=== PATIENT | female | born 1985 | race Caucasian/White ===

== ENCOUNTER 2024-10-06 14:03 | Inpatient (IN) | payer MEDICAID, SELFPAY ==
[2024-10-06] VITALS (35 sets, daily range): BP systolic 96–125; BP diastolic 39–85; PULSE 92–123; RESP 16–22; TEMP 37–39.3; O2SAT 95–100
[2024-10-06 14:35] LABS: Bilirubin Large (Negative); Blood Large (Negative); Clarity Sl Cloudy (Clear); Glucose Negative (Negative); Ketones >=160 mg/dL (Negative); Leukocyte Esterase Negative (Negative); Nitrite Positive (Negative); Specific Gravity >= 1.030 (1.005-1.025)
[2024-10-06 14:39] LABS: Lactate 1.8 mmol/L (<or=2.0)
[2024-10-06 14:42] LABS: Abs Immature Grans 0.08 10^3/uL (0.0-0.06); Absolute Basophil Count 0.03 10^3/uL (0.0-0.2); Absolute Lymphocyte Count 0.72 10^3/uL (1.2-3.4); Absolute Monocyte Count 0.95 10^3/uL (0.1-0.8); Absolute Neutrophil Count 13.25 10^3/uL (1.2-6.7); Basophils % 0.2 %; HGB 13.4 g/dL (11.2-15.7); Immature Grans % 0.5 %; Lymphocytes % 4.8 %; MCH 30.7 pg (27.0-33.0); MCHC 34.4 % (32.0-36.0); MCV 89 fL (80-95); MPV 9.1 fL (8.0-11.0); Monocytes % 6.3 %; Neutrophils % 88.2 %; Platelet Count 215 10^3/uL (130-400); RBC 4.37 10^6/uL (3.93-5.22); RDW 12.8 % (11.7-14.6); RDW-SD 42.1 fL; WBC 15.02 10^3/uL (4.4-10.8)
--- NOTE | 2024-10-06 14:45 | DI.CT_ITS ---
Exam(s) CT ABDOMEN PELVIS W EXAM: CT ABDOMEN PELVIS W CLINICAL HISTORY: RLQ pain with N/V/D. TECHNIQUE: Imaging Protocol: Axial computed tomography images with coronal and sagittal reformatted images were created and reviewed CONTRAST MATERIAL: Intravenous: Omnipaque-350 100cc Oral: None COMPARISON: No exams were available for comparison FINDINGS: VISUALIZED LUNG BASES: No nodules nor pleural effusions evident. ABDOMEN: LIVER: There are no focal hepatic lesions evident. No dilated intrahepatic ducts. GALLBLADDER/BILIARY: No obvious gallbladder pathology. CBD is not dilated. PANCREAS: No evidence of pancreatic mass nor dilatation of the pancreatic duct. SPLEEN: Spleen is not enlarged. No obvious intrasplenic lesions. Splenic and portal veins are patent. ADRENALS: There are no significant adrenal masses. KIDNEYS:Parapelvic cysts noted in left kidney. No solid renal masses. No calculi nor hydronephrosis.. ABDOMINAL AORTA: Abdominal aorta is not enlarged. LYMPH NODES:There is no retroperitoneal nor paraaortic adenopathy. ABDOMINAL WALL: No evidence of significant anterior abdominal wall nor inguinal hernia. GI: The cecum is located above the iliac crest. The appendix is significantly abnormal with thickening to 1 cm diameter and Diana pending seal streaking and there is also some adjacent free air consistent with perforation. There is also small-moderate amount of fluid in the cul-de-sac of the pelvis. Findings are consistent with acute perforated appendicitis. There is sigmoid diverticuli without evidence of obvious acute diverticulitis. PELVIS: LYMPH NODES: No intrapelvic nor inguinal adenopathy. REPRODUCTIVE: Uterus and ovaries appear unremarkable. URINARY BLADDER: No calculi nor obvious masses evident OSSEOUS: No fractures and no significant osseous lesions. IMPRESSION: 1. Findings consistent with acute appendicitis with perforation. Although there is abundant streaking in the mesoappendix, there is also some free fluid in the dependent aspect of the [id number]-[id number]-sac. This may be purulent fluid from the perforated appendicitis. This patient is at significant risk for developing an abscess. 2. Sigmoid diverticulosis without evidence of acute diverticulitis. Report called by myself to ER physician 10/06/2024 at 3:40 p.m. RADIATION DOSE DELIVERED: 688.86mGy.cm Total DLP DATA REPOSITORY: All CT scans at this facility are submitted to the National Radiology Data Registry (NRDR) Dose Index Registry (DIR) with the [employer] (A[employer]). RADIATION OPTIMIZATION: All CT scans at this facility use at least one of these dose optimization techniques: automated exposure control; mA and/or kV adjustment per patient size (includes targeted exams where dose is matched to clinical indication); or iterative reconstruction.
[2024-10-06] MEDS: Ondansetron 4 MG/2 ML VIAL IVP (14:46)
[2024-10-06] MEDS: ACETAMINOPHEN 1,000 MG/100 ML BAG 400 MG IVPB (14:46)
[2024-10-06 14:47] LABS: Bacteria Moderate HPF (Negative); C & S Indicated? No; Casts 0-2 Hyaline LPF (Negative); Crystals Moderate Amorphous HPF (Negative); Epithelial Cells Moderate HPF (Negative); Mucus Moderate (Negative); WBC 0-2 HPF (0-5)
--- NOTE | 2024-10-06 14:54 | W.ED.GENAD ---
Discharge Plan Disposition Patient Disposition: Admit to [facility] Condition: Stable Discharge Details Clinical Impression: Acute perforated appendicitis, Hypokalemia, Hypomagnesemia Primary Care Provider: None,None ED Provider: Alice White Home Meds and New Rx's Prescriptions: No Action norgestimate-ethinyl estradiol 0.25-0.035 mg tablet 1 tab PO DAILY Patient Comments: TAKE 1 TABLET BY MOUTH ONCE A DAY FOR CONTRACEPTION AND START THE... (REFER TO PRESCRIPTION NOTES). escitalopram oxalate 10 mg tablet 10 mg PO DAILY Patient Comments: take 1 tablet by mouth once daily for MOOD HPI General Mode of arrival: ambulatory. Date/Time Provider Initiated Documentation: 10/06/24 14:06. Limitations to Documentation: no limitations. Information obtained by: patient and old records reviewed. HPI Narrative: This is a 38-year-old female patient with a history of depression, no prior abdominal surgeries, presenting for evaluation of right lower quadrant abdominal pain. The pain started last night and has been fairly constant, is associated with nausea, vomiting, and diarrhea. Denies recent antibiotic use, hospitalizations, or exposure to unclean water sources. She has not tried any medications at home for management of these symptoms. She presented today with a fever, states that nobody else in her home is sick with similar symptoms. Her pain radiates into her back, is not associated with any dysuria or hematuria. She reports that she feels hungry, but when she eats her pain gets worse and she vomits. Related Data Home Medications ?Medication ?Instructions ?Recorded ?Confirmed escitalopram oxalate 10 mg tablet 10 mg PO DAILY 10/06/24 10/06/24 norgestimate 0.25 mg-ethinyl 1 tab PO DAILY 10/06/24 10/06/24 estradiol 0.035 mg tablet Allergies Allergy/AdvReac Type Severity Reaction Status Date / Time sertraline (From Zoloft) Allergy Mild Agitation Verified 10/06/24 14:08 General Stated Complaint: Abd Prob DAVINA: 3 Exam Narrative Exam Narrative: Gen: Awake and alert, appears uncomfortable HEENT: Non-icteric sclera Neck: Supple Lungs: No apparent respiratory distress, normal respiratory effort. Lung sounds clear and equal bilaterally CV: Appears well perfused, heart with tachycardic rate but regular rhythm, no murmurs auscultated, strong distal pulses Abdomen: Non-distended, soft, tender to palpation in the right lower and right upper quadrants with anticipatory guarding, no rigidity or rebound. Rovsing sign positive MSK: Moves 4 extremities without apparent limitation in ROM Skin: Visualized skin without rashes, cyanosis. Neuro: Normal Gait, no obvious focal deficits or facial asymmetry. Speaks in full, clear sentences. Psych: Appropriate for situation. Course Vital Signs Vital signs: Vital Signs Temperature 39.3 C H 10/06/24 14:04 Pulse 123 H 10/06/24 14:04 Respiratory Rate 18 10/06/24 14:04 Blood Pressure 106/57 L 10/06/24 14:04 Pulse Oximetry 96 10/06/24 14:04 Temperature 39.3 C H 10/06/24 14:10 Temperature Source Oral 10/06/24 14:10 Pulse 123 H 10/06/24 14:10 Respiratory Rate 18 10/06/24 14:10 Blood Pressure 106/57 L 10/06/24 14:10 Pulse Oximetry 96 10/06/24 14:10 Oxygen Delivery Method Room Air 10/06/24 14:10 Oxygen Flow Rate 0 10/06/24 14:10 Pain Level 10 10/06/24 14:10 Lab/Test Results Lab/Test Results: Laboratory Tests Range/Units 10/06/24 10/06/24 14:16 14:30 WBC (4.4-10.8) 10^3/uL 15.02 H RBC (3.93-5.22) 10^6/uL 4.37 Hgb (11.2-15.7) g/dL 13.4 Hct (36.0-46.0) % 39.0 MCV (80-95) fL 89 MCH (27.0-33.0) pg 30.7 MCHC (32.0-36.0) % 34.4 RDW (11.7-14.6) % 12.8 Plt Count (130-400) 10^3/uL 215 MPV (8.0-11.0) fL 9.1 Immature Gran % % 0.5 Neutrophils % % 88.2 Lymphocytes % % 4.8 Monocytes % % 6.3 Eosinophils % % 0.0 Basophils % % 0.2 Nucleated RBC % (0.0-0.3) % 0.0 Absolute Neutrophils (1.2-6.7) 10^3/uL 13.25 H Absolute Lymphocytes (1.2-3.4) 10^3/uL 0.72 L Absolute Monocytes (0.1-0.8) 10^3/uL 0.95 H Absolute Eosinophils (0.0-0.7) 10^3/uL 0.00 Absolute Basophils (0.0-0.2) 10^3/uL 0.03 VBG Lactate (<or=2.0) mmol/L 1.8 Urine Color (Yellow) Suzanne Urine Clarity (Clear) Sl Cloudy Urine pH (5-8) 6.0 Ur Specific [place] (1.005-1.025) >= 1.030 H Urine Protein (Neg-Trace) mg/dL >=300 H Urine Ketones (Negative) mg/dL >=160 H Urine Blood (Negative) Large H Urine Nitrite (Negative) Positive H Urine Bilirubin (Negative) Large H Urine Urobilinogen (Up to 0.2) mg/dL 1.0 H Ur Leukocyte Esterase (Negative) Negative Urine RBC (0-2) HPF 10-20 H Urine WBC (0-5) HPF 0-2 Ur Epithelial Cells (Negative) HPF Moderate Urine Crystals (Negative) HPF Moderate Amorphous Urine Bacteria (Negative) HPF Moderate Urine Casts (Negative) LPF 0-2 Hyaline Urine Mucus (Negative) Moderate Ur Culture Indicated? No Urine Glucose (Negative) mg/dL Negative POC- Test(urine) Negative Medical Decision Making This is a 38-year-old female patient presenting for evaluation of abdominal pain. My differential includes but is not limited to gastritis, gastroenteritis, pancreatitis, cholecystitis, hepatitis, appendicitis, diverticulitis, bowel obstruction, metabolic electrolyte derangements including dehydration, kidney injury, anemia. Considered mesenteric ischemia and aortic pathology though the patient is young and without risk factors for these etiologies. Considered urinary tract infection, nephrolithiasis, and considered ectopic , ovarian cyst, PID/TOA. I will provide the patient with a dose of Tylenol for her fever, Zofran and Dilaudid for management of pain and nausea, and will obtain CBC, CMP, magnesium, lipase, and lactate. I will obtain a urinalysis and [id number] urine . We will obtain a CT abdomen pelvis. -I reviewed the patient's laboratory studies, which noted a leukocytosis to 15 but no anemia or thrombocytopenia. Chemistry panel is notable for a potassium of 3.3 and a magnesium of 1.5. I repleted the magnesium and potassium, no other significant electrolyte derangements, no evidence of kidney disease, bilirubin slightly elevated to 2.4 without associated transaminitis. Lipase is low, lactate 1.8, urinalysis grossly contaminated, and in the absence of symptoms I will hold on empiric treatment or culture. I reviewed the patient's CT scan and discussed the results with the radiologist. It is notable for a perforated appendicitis. I provided the patient with a dose of Zosyn, made her n.p.o., and reached out to the general surgery team. They reviewed the imaging and discussed the situation with the patient, and are electing for admission and medical management at this time. She was transferred to the general surgery team and remained hemodynamically improved while under my care, with a resolution of her tachycardia. Alice White MD Critical Care Time Critical Care Time Critical Care Time: Yes Total Critical Care Time: 35 Attestation: Upon my evaluation, this patient had a high probability of imminent or life-threatening deterioration due to perforated appendicitis, which required my direct attention, intervention, and personal management. I have personally provided 35 minutes of critical care time exclusive of time spent on separately billable procedures. Time includes review of laboratory data, radiology results, discussion with consultants, and monitoring for potential decompensation. Interventions were performed as documented above. Alice White MD [facility] All Active Problems (Updated 10/06/24 @ 17:44 by Alice White MD) Hypomagnesemia (Acute) Hypokalemia (Acute) Acute perforated appendicitis (Acute) Social History Smoking/Tobacco Use Status: Never Smoking risk assessment performed?: Yes Alcohol Intake: current Alcohol Intake frequency: holidays/special occasions only Drug use: Rarely Substance use type: marijuana
[2024-10-06] MEDS: Normal Saline 50 ML (15:01)
[2024-10-06] MEDS: HYDROmorphone 2 MG/ML SYR 0.5 MG IVP (15:01)
[2024-10-06 15:02] LABS: ALT 22 U/L (14-59); AST 16 U/L (15-37); Albumin 3.4 g/dL (3.4-5.0); Alkaline Phosphatase 90 U/L (46-116); Anion Gap 11.2 mmol/L (3-11); BUN 11 mg/dL (7-18); Bilirubin, Total 2.4 mg/dL (0.2-1.0); CO2 26.8 mmol/L (21.0-32.0); CREATININE 0.9 mg/dL (0.55-1.02); Chloride 97 mmol/L (98-107); Estimated GFR 84.97 (mL/min/1.73m2); Glucose 126 mg/dL (74-106); Lipase 18 U/L (<78); Magnesium 1.5 mg/dL (1.8-2.4); Potassium 3.3 mmol/L (3.5-5.1); Sodium 135 mmol/L (136-145); Total Protein 8.1 g/dL (6.4-8.2)
[2024-10-06] MEDS: Omnipaque 350 MG/ML 100 ML BTL 75 ML IJ (15:21)
[2024-10-06] MEDS: Normal Saline - Diluent 50 ML VIAL IJ (15:22)
[2024-10-06] MEDS: MAGNESIUM SULFATE 2 GM/50 ML BAG IV_INF (15:46)
[2024-10-06] MEDS: Potassium Chloride 20 MEQ TABCR 40 MEQ PO (15:46)
[2024-10-06] MEDS: PIPERACILLIN/TAZO 3.375 GM in Normal Saline 50 ML IVPB (15:59)
[2024-10-06] MEDS: Normal Saline 1,000 ML 1000 ML IV (16:52)
--- NOTE | 2024-10-06 18:07 | W.PC.ACHO ---
Registration Status: ADM IN Primary Language: Preferred Language: Unable to Obtain ED Information & Data Chief Complaint Abd Prob 10/06/24 14:56 Triage Note pt c/o rlq pain and vomiting 10/06/24 14:04 and diarrhea onset last night pt states painful to move Most Recent Vital Signs Temperature 37.2 C 10/06/24 16:18 Temperature Source Oral 10/06/24 16:18 Pulse 98 H 10/06/24 17:46 Respiratory Rate 18 10/06/24 14:10 Blood Pressure 118/51 L 10/06/24 17:46 Blood Pressure Mean 68 10/06/24 17:46 Pulse Oximetry 98 10/06/24 17:46 Oxygen Delivery Method Room Air 10/06/24 14:10 Oxygen Flow Rate 0 10/06/24 14:10 Pain Level 10 10/06/24 14:10 Allergies sertraline (From Zoloft) Allergy (Mild, Verified 10/06/24 14:08) Agitation Active Medications Generic Name Dose Route Start Last Admin Trade Name Freq PRN Reason Stop Dose Admin Iohexol 75 ml 10/06/24 15:30 10/06/24 15:21 Omnipaque 350 Mg/Ml 100 Ml Btl IJ 11/05/24 23:59 75 ml DIRECTED JENA Administration Sodium Chloride 50 ml 10/06/24 15:30 10/06/24 15:22 Normal Saline - Diluent 50 Ml Vial IJ 50 ml .FOR DI USE JENA Administration IV IV Catheter Type [Right Wrist] Saline Lock IV Catheter Gauge [Right Wrist 20 ] Diet Orders Category Date Time Status Nothing Per Oral [DIET] Nutrition 10/06/24 17:45 Active Diagnostics 10/06/24 10/06/24 Range/Units 14:30 14:16 WBC 15.02 H (4.4-10.8) 10^3/uL RBC 4.37 (3.93-5.22) 10^6/uL Hgb 13.4 (11.2-15.7) g/dL Hct 39.0 (36.0-46.0) % MCV 89 (80-95) fL MCH 30.7 (27.0-33.0) pg MCHC 34.4 (32.0-36.0) % RDW 12.8 (11.7-14.6) % Plt Count 215 (130-400) 10^3/uL MPV 9.1 (8.0-11.0) fL Immature Gran % 0.5 % Neutrophils % 88.2 % Lymphocytes % 4.8 % Monocytes % 6.3 % Eosinophils % 0.0 % Basophils % 0.2 % Nucleated RBC % 0.0 (0.0-0.3) % Absolute Neutrophils 13.25 H (1.2-6.7) 10^3/uL Absolute Lymphocytes 0.72 L (1.2-3.4) 10^3/uL Absolute Monocytes 0.95 H (0.1-0.8) 10^3/uL Absolute Eosinophils 0.00 (0.0-0.7) 10^3/uL Absolute Basophils 0.03 (0.0-0.2) 10^3/uL VBG Lactate 1.8 (<or=2.0) mmol/L Sodium 135 L (136-145) mmol/L Potassium 3.3 L (3.5-5.1) mmol/L Chloride 97 L (98-107) mmol/L Carbon Dioxide 26.8 (21.0-32.0) mmol/L Anion Gap 11.2 H (3-11) mmol/L BUN 11 (7-18) mg/dL Creatinine 0.9 (0.55-1.02) mg/dL Est GFR (CKD-EPI 2020) 84.97 (mL/min/1.73m2) Glucose 126 H (74-106) mg/dL Calcium 9.0 (8.5-10.1) mg/dL Magnesium 1.5 L (1.8-2.4) mg/dL Total Bilirubin 2.4 H (0.2-1.0) mg/dL AST 16 (15-37) U/L ALT 22 (14-59) U/L Alkaline Phosphatase 90 (46-116) U/L Total Protein 8.1 (6.4-8.2) g/dL Albumin 3.4 (3.4-5.0) g/dL Lipase 18 (<78) U/L Urine Color Suzanne (Yellow) Urine Clarity Sl Cloudy (Clear) Urine pH 6.0 (5-8) Ur Specific [place] >= 1.030 H (1.005-1.025) Urine Protein >=300 H (Neg-Trace) mg/dL Urine Ketones >=160 H (Negative) mg/dL Urine Blood Large H (Negative) Urine Nitrite Positive H (Negative) Urine Bilirubin Large H (Negative) Urine Urobilinogen 1.0 H (Up to 0.2) mg/dL Ur Leukocyte Esterase Negative (Negative) Urine RBC 10-20 H (0-2) HPF Urine WBC 0-2 (0-5) HPF Ur Epithelial Cells Moderate (Negative) HPF Urine Crystals Moderate Amorphous (Negative) HPF Urine Bacteria Moderate (Negative) HPF Urine Casts 0-2 Hyaline (Negative) LPF Urine Mucus Moderate (Negative) Ur Culture Indicated? No Urine Glucose Negative (Negative) mg/dL [id number] Documentation POC Urine Test Start: 10/06/24 14:09 Freq: .Urine Test Status: Active Protocol: Activity Type Activity Date Activity User E-sign Co-sign Detail Recorded Client Recorded Date Recorded By Document 10/06/24 14:21 N.MONICA [id number] 10/06/24 14:21 NISAAC Intake and Output - 24 Hour Total 10/06/24 14:03 thru 10/06/24 16:29 Intake Total 150 Balance 150 Weight 81.647 kg Intake: IV 150 Falls Risk Assessment History of Falls No History 10/06/24 14:11 Contributing Factors No Factors 10/06/24 14:11 Ambulatory Aids Independent 10/06/24 14:11 Tubes/Lines None 10/06/24 14:11 Gait Evaluation No gait disturbance 10/06/24 14:11 Cognition No cognitive impairment 10/06/24 14:11 Fall Total Score 0 10/06/24 14:11 Level of Risk Standard/Low Risk 10/06/24 14:11 v v v v v v v v v Sending and/or Receiving Nurses: Please use comment section below to note any information pertinent to the patient hand-off not included above. Information / Comments: Paged at [phone], called for report at [phone]. 20 G R wrist. Pt given dilauded, zosyn, NS bolus, IV mag, PO potassium, and zofran in the ED. Currently NPO. Report received from: Rhonda Rasheed ED RN
[2024-10-06] MEDS: Enoxaparin 40 MG/0.4 ML SYR SC (18:57)
[2024-10-06] MEDS: cefTRIAXone 2 GM/50 ML BAG IVPB (18:57)
[2024-10-06] MEDS: Lactated Ringers 1,000 ML 125 ML IV (18:57)
[2024-10-06] MEDS: Normal Saline Flush 10 ML SYR IVP ×2 (19:04→19:55)
[2024-10-06] MEDS: metroNIDAZOLE 500 MG/100 ML BAG 100 MG IVPB (19:46)
--- NOTE | 2024-10-06 20:22 | W.PM.HP.N ---
Date of service: 10/06/24 Time of Service: 17:30 Assessment and Plan Assessment and plan (1) Acute perforated appendicitis: Status: Acute Assessment and plan: Personally reviewed patient's CT scan, she has some significant inflammation in the right lower quadrant, and a generous amount of fat stranding in the right lower quadrant. The cecum and cecal base appear thickened. Recommended patient undergo medical management of her appendicitis with IV antibiotics. Will admit her to the hospital and start her on Rocephin and Flagyl. Did discuss with the patient today, as well as her stepmother by phone, who provides the patient support at home. (2) Hypokalemia: Status: Acute Assessment and plan: Repleted today on admission to the ER. (3) Hypomagnesemia: Status: Acute Assessment and plan: Repleted today on admission to the ER. History of Present Illness Narrative: Patient is a 38-year-old female, she has a history of depression, as well as some developmental delay, she is currently on Lexapro. She reports that over the past 24 hours she developed an acute onset of right lower quadrant abdominal pain associated with some nausea. She has not experienced pain like this in the past. She relates no history of melena nor hematochezia. She relates normal menstrual cycles. She denies any history of dysuria. She has had no prior surgical procedures. She lives with her stepmother, currently she is on disability secondary to her developmental delay. Review of Systems Narrative: General, negative. CV, negative. Respiratory, negative. GI, as per HPI, otherwise negative. negative. Musculoskeletal negative. Neuro, as per HPI above, patient with developmental delay. Endocrine, negative. Skin, negative. PFSH All Active Problems (Updated 10/06/24 @ 20:43 by Juancho Lozano MD) Sepsis (Acute) Hypomagnesemia (Acute) Hypokalemia (Acute) Acute perforated appendicitis (Acute) Social History Smoking/Tobacco Use Status: Never Smoking risk assessment performed?: Yes Alcohol Intake: current Alcohol Intake frequency: holidays/special occasions only Drug use: Rarely Substance use type: marijuana Housing: house Meds Allergies and Home Medications Allergies Allergy/AdvReac Type Severity Reaction Status Date / Time sertraline (From Zoloft) Allergy Mild Agitation Verified 10/06/24 14:08 Home Medications ?Medication ?Instructions ?Recorded ?Confirmed ?Type escitalopram oxalate 10 mg tablet 10 mg PO DAILY 10/06/24 10/06/24 History norgestimate 0.25 mg-ethinyl 1 tab PO DAILY 10/06/24 10/06/24 History estradiol 0.035 mg tablet Exam Narrative Exam Narrative: Patient is an adult female, 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 She does appear very anxious. Her cardiac exam elicits some mild tachycardia but without murmur. Her pulmonary exam is clear to auscultation bilaterally. Her abdomen has some mild abdominal obesity. There are no prior surgical scars, the abdomen is soft, tender in the right lower quadrant, with some subjective distention, but without tympany to percussion. Results Imaging Abdomen CT scan report/results: report reviewed and image reviewed Labs 10/06/24 14:30 10/06/24 14:30 Labs: Laboratory Results - last 24 hr 10/06/24 10/06/24 14:16 14:30 WBC 15.02 H RBC 4.37 Hgb 13.4 Hct 39.0 MCV 89 MCH 30.7 MCHC 34.4 RDW 12.8 Plt Count 215 MPV 9.1 Immature Gran % 0.5 Neutrophils % 88.2 Lymphocytes % 4.8 Monocytes % 6.3 Eosinophils % 0.0 Basophils % 0.2 Nucleated RBC % 0.0 Absolute Neutrophils 13.25 H Absolute Lymphocytes 0.72 L Absolute Monocytes 0.95 H Absolute Eosinophils 0.00 Absolute Basophils 0.03 VBG Lactate 1.8 Sodium 135 L Potassium 3.3 L Chloride 97 L Carbon Dioxide 26.8 Anion Gap 11.2 H BUN 11 Creatinine 0.9 Est GFR (CKD-EPI 2020) 84.97 Glucose 126 H Calcium 9.0 Magnesium 1.5 L Total Bilirubin 2.4 H AST 16 ALT 22 Alkaline Phosphatase 90 Total Protein 8.1 Albumin 3.4 Lipase 18 Urine Color Suzanne Urine Clarity Sl Cloudy Urine pH 6.0 Ur Specific [place] >= 1.030 H Urine Protein >=300 H Urine Ketones >=160 H Urine Blood Large H Urine Nitrite Positive H Urine Bilirubin Large H Urine Urobilinogen 1.0 H Ur Leukocyte Esterase Negative Urine RBC 10-20 H Urine WBC 0-2 Ur Epithelial Cells Moderate Urine Crystals Moderate Amorphous Urine Bacteria Moderate Urine Casts 0-2 Hyaline Urine Mucus Moderate Ur Culture Indicated? No Urine Glucose Negative Last Vital Signs Temp 38.5 C H 10/06/24 19:24 Pulse 106 H 10/06/24 19:24 Resp 20 10/06/24 19:24 BP 117/45 L 10/06/24 19:24 Pulse Ox 100 10/06/24 19:24 Time Spent Time spent with Patient: <40 minutes Time was spent: preparing to see the patient(eg.review tests), ordering medications,tests, procedures, referring, communicating with other health livestock caretaker, indepentently interpreting results and counseling the patient
[2024-10-07] MEDS: metroNIDAZOLE 500 MG/100 ML BAG 100 MG IVPB ×4 (01:37→20:08)
[2024-10-07 03:10] VITALS: BP 111/57; PULSE 90; RESP 20; TEMP 36.7; O2SAT 96
[2024-10-07] MEDS: Lactated Ringers 1,000 ML 125 ML IV ×2 (06:30→17:02)
[2024-10-07 06:36] LABS: Abs Immature Grans 0.09 10^3/uL (0.0-0.06); Absolute Basophil Count 0.02 10^3/uL (0.0-0.2); Absolute Eosinophil Count 0.01 10^3/uL (0.0-0.7); Absolute Lymphocyte Count 1.13 10^3/uL (1.2-3.4); Absolute Neutrophil Count 9.99 10^3/uL (1.2-6.7); Basophils % 0.2 %; Eosinophils % 0.1 %; HCT 32.3 % (36.0-46.0); HGB 10.8 g/dL (11.2-15.7); Immature Grans % 0.7 %; Lymphocytes % 9.2 %; MCH 30.5 pg (27.0-33.0); MCHC 33.4 % (32.0-36.0); MCV 91 fL (80-95); MPV 9.3 fL (8.0-11.0); Monocytes % 8.2 %; Neutrophils % 81.6 %; Platelet Count 165 10^3/uL (130-400); RBC 3.54 10^6/uL (3.93-5.22); RDW 13.1 % (11.7-14.6); RDW-SD 43.6 fL; WBC 12.24 10^3/uL (4.4-10.8)
[2024-10-07 06:40] LABS: Anion Gap 12.5 mmol/L (3-11); BUN 8 mg/dL (7-18); CO2 24.5 mmol/L (21.0-32.0); CREATININE 0.7 mg/dL (0.55-1.02); Calcium 8.4 mg/dL (8.5-10.1); Chloride 102 mmol/L (98-107); Estimated GFR 114.88 (mL/min/1.73m2); Glucose 111 mg/dL (74-106); Potassium 3.4 mmol/L (3.5-5.1); Sodium 139 mmol/L (136-145)
[2024-10-07 08:00] VITALS: BP 113/53; PULSE 94; TEMP 36.1; O2SAT 98
--- NOTE | 2024-10-07 09:21 | INITIAL_ITS ---
Date of service: 10/07/24 Time of Service: 09:22 Care Management Initial Assmt Initial Assessment Reason for Hospitalization: acute perforated appendicitis Functional Status/Living Situation Patient Presentation: Jocelyne presented to the ED yesterday afternoon with c/o right lower quadrant abdominal pain. The pain was reported as constant and associated with nausea, vomiting and diarrhea. She was also noted to have a fever upon presentation to the ED. After consultation with the surgeon, it was decided that she would be treated with IV antibiotics as opposed to surgery. Jocelyne was lying in bed when CM met with her today. She was very pleasant and easily engaged. Jocelyne stated that she is feeling a little bit better, but not a lot. She stated that she was told by surgery that she would be admitted for several days due to the severity of her infection. Surgery note does indicate that Jocelyne will be kept NPO through the weekend. Jocelyne does not have a PCP in the community, and will be referred to the T-Doc for follow up. T-doc was Jesi Jon at [facility]. SADA did attempt to reach out to Armond, but no answer. CM left a generic message as no name was stated. Town of Residence: [place] Resides with: Other (Jocelyne lives with her sister, Suzanne, Suzanne's 2 children who are 10y and 2y, and also Suzanne's mom, Armond. They live in Suzanne's mom's house.) Significant Other/Family: Local (Suzanne and Armond) Natural Supports: Armond and Suzanne Employment Status: Disabled (due to developmental delay) Instrumental Activities of Daily Living (ADLs): Independent Activities/Hobbies/SocialSupport: Jocelyne stated that she likes to watch TV and play with her sister's kids. Medications Medication Management: No Issues/Barriers identified Advance Directives Advance Directives: Do you have an Advance Directive: N , 14:[address] [facility]: N 10/06/24, 14:07 Date Asked 10/06/24 10/06/24, 14:07 AD Date Reviewed COLST On File at [facility] COLST Date Scanned Code Status Resuscitation Status Full Code Insurance Coverage/Financial Issues Insurance: [facility] plan Medicaid of [place] Care Team Visit Care Team Role Provider Type None None Primary Care Provider NON-[facility] STAFF PHYSICIAN Alice White MD Emergency Provider [facility] STAFF PHYSICIAN Juancho Lozano MD Admit Provider [facility] STAFF PHYSICIAN Attending Provider Discharge Potential Discharge Needs: PCP F/U Appt Anticipated Barriers to Discharge: None Identified Patient/Family Education Needs: Review discharge instructions, discuss Ask Me Three Transportation: Private vehicle Plan: Anticipate that Jocelyne will discharge home with now new services. She will f/u with the T-doc and continue per her plan of care. She will transport in a private vehicle. CM will continue to follow. Social Determinants of Health Screening Social Determinants of health last assessed in clinic: 10/07/24 Will the Patient Participate in the Screening?: Yes Do you worry about having a steady place to live?: no Problems where you live: no known problems In the past 12 months, have you had to go without electric, gas, oil or water in your home?: no 1. Within the past 12 months, we worried whether our food would run out before we got money to buy more.: Never true 2. Within the past 12 months, the food we bought just didn't last and we didn't have money to get more.: Never true Has lack of transportation kept you from medical appointments or from doing things needed for daily living?: no Has anyone in your life made you feel unsafe or unsupported?: no How hard is it for you to pay for the very basics like food, housing, medical care, and heating? Would you say it is:: Not hard at all Do you want help finding or keeping work or a job?: I do not need or want help If for any reason you need help with day-to-day activities such as bathing, preparing meals, shopping, managing finances, etc., do you get the help you need?: I don?t need any help How often do you feel lonely or isolated from those around you?: Never Do you speak a language other than Bhutanese at home?: No Does the patient want assistance with any of the above?: No PFSH All Active Problems (Updated 10/07/24 @ 10:29 by Juancho Lozano MD) Depression (Chronic) Sepsis (Acute) Hypomagnesemia (Acute) Hypokalemia (Acute) Acute perforated appendicitis (Acute) Social History Smoking/Tobacco Use Status: Never Smoking risk assessment performed?: Yes Alcohol Intake: current Alcohol Intake frequency: holidays/special occasions only Drug use: Rarely Substance use type: marijuana Housing: house
--- NOTE | 2024-10-07 10:24 | W.PM.PROGNOT ---
Date of Service Date of service: 10/07/24 Time of Service: 10:25 Assessment and Plan Assessment and plan (1) Acute perforated appendicitis: Status: Acute Assessment and plan: Doing acceptably today. Does not appear to be worsening. Only on Rocephin and Flagyl, she is n.p.o., plan to keep her n.p.o. over the weekend. (2) Hypokalemia: Status: Acute Assessment and plan: Mild hypokalemia today, this was replaced with 40 mill equivalents today. (3) Hypomagnesemia: Status: Acute Assessment and plan: Mildly hypomagnesemic today, replaced with 2 g of magnesium sulfate. (4) Depression: Status: Chronic Assessment and plan: She has a history of depression, she is on Lexapro, this is being held, as she is NPO. I recommended to her that she keep the windows open during the day, so that she is able to see some sunlight, and does not begin to confuse day and night cycles. (5) Sepsis: Status: Acute Assessment and plan: Sepsis, from abdominal source, perforated appendicitis, this is being treated medically. Subjective Subjective Interval history since last seen: Patient feels a little better today. She is less anxious than yesterday as well. Exam Narrative Exam Narrative: Her vitals today show some improvement of the tachycardia. Since midnight she has been afebrile. Ms. Ackerman was examined today with her nurse present as a recreation technician. Her abdomen is soft, still with tenderness in the right lower quadrant near McBurney's point. Her abdomen does not appear distended, this is limited however by her body habitus, and some subcutaneous abdominal fat deposition. Objective Last Vital Signs Temp 36.1 C L 10/07/24 08:00 Pulse 94 H 10/07/24 08:00 Resp 20 10/07/24 03:10 BP 113/53 L 10/07/24 08:00 Pulse Ox 98 10/07/24 08:00 Laboratory Results - last 24 hr 10/06/24 10/06/24 10/07/24 14:16 14:30 06:00 WBC 15.02 H 12.24 H RBC 4.37 3.54 L Hgb 13.4 10.8 L D Hct 39.0 32.3 L MCV 89 91 MCH 30.7 30.5 MCHC 34.4 33.4 RDW 12.8 13.1 Plt Count 215 165 MPV 9.1 9.3 Immature Gran % 0.5 0.7 Neutrophils % 88.2 81.6 Lymphocytes % 4.8 9.2 Monocytes % 6.3 8.2 Eosinophils % 0.0 0.1 Basophils % 0.2 0.2 Nucleated RBC % 0.0 0.0 Absolute Neutrophils 13.25 H 9.99 H Absolute Lymphocytes 0.72 L 1.13 L Absolute Monocytes 0.95 H 1.00 H Absolute Eosinophils 0.00 0.01 Absolute Basophils 0.03 0.02 VBG Lactate 1.8 Sodium 135 L 139 Potassium 3.3 L 3.4 L Chloride 97 L 102 Carbon Dioxide 26.8 24.5 Anion Gap 11.2 H 12.5 H BUN 11 8 Creatinine 0.9 0.7 Est GFR (CKD-EPI 2020) 84.97 114.88 Glucose 126 H 111 H Calcium 9.0 8.4 L Magnesium 1.5 L Total Bilirubin 2.4 H AST 16 ALT 22 Alkaline Phosphatase 90 Total Protein 8.1 Albumin 3.4 Lipase 18 Urine Color Suzanne Urine Clarity Sl Cloudy Urine pH 6.0 Ur Specific [place] >= 1.030 H Urine Protein >=300 H Urine Ketones >=160 H Urine Blood Large H Urine Nitrite Positive H Urine Bilirubin Large H Urine Urobilinogen 1.0 H Ur Leukocyte Esterase Negative Urine RBC 10-20 H Urine WBC 0-2 Ur Epithelial Cells Moderate Urine Crystals Moderate Amorphous Urine Bacteria Moderate Urine Casts 0-2 Hyaline Urine Mucus Moderate Ur Culture Indicated? No Urine Glucose Negative Objective Narrative Objective Narrative: Reviewed laboratory values today, her white blood cell count has decreased to 12 today. She has some mild hypokalemia and hypomagnesemia, for which IV replacement has been ordered. Time Spent with Patient Time Spent with Patient: <25 minutes Time was spent: preparing to see the patient(eg.review tests), obtaining and/or reviewing separately otained hiistory, ordering medications,tests, procedures and counseling the patient
[2024-10-07] MEDS: MAGNESIUM SULFATE 2 GM/50 ML BAG IV_INF (10:38)
[2024-10-07 11:19] VITALS: BP 111/59; PULSE 89; RESP 16; TEMP 36.2; O2SAT 97
--- NOTE | 2024-10-07 11:37 | PHA.REVIEW2 ---
Pharmacy Admission Review Admission Clinical Review Admission Pharmacy Review: Sepsis (Acute) Hypomagnesemia (Acute) Hypokalemia (Acute) Acute perforated appendicitis (Acute) sertraline (From Zoloft) Allergy (Mild, Verified 10/06/24 14:08) Agitation Resuscitation Status Full Code Height 5 ft 2 in Weight 91.626 kg Comments Comments/Follow Ups: Watch BP, HR, K+, mag, labs and for med changes (IV to PO and home meds once pt is no longer NPO, possible BM meds) Pharmacy Admission Review Renal Dosing Renal Dosing: BUN 8 mg/dL (7-18) 10/07/24 06:00 Creatinine 0.7 mg/dL (0.55-1.02) 10/07/24 06:00 Medications needing adjustments: Reviewed (Crcl ~117 mL/min current meds are okay) Anticoagulation Anticoagulation: Hgb 10.8 g/dL (11.2-15.7) L D 10/07/24 06:00 Hct 32.3 % (36.0-46.0) L 10/07/24 06:00 Plt Count 165 10^3/uL (130-400) 10/07/24 06:00 Creatinine 0.7 mg/dL (0.55-1.02) 10/07/24 06:00 DVT Prophylaxis: Reviewed Medications: Enoxaparin Opiate Usage Evaluate Pain Scale/Pains Meds: Reviewed (has only had one dose of hydromorphone so far this admission) Scheduled Bowel Reg ordered if on Opiates?: No Relevant Labs Relevant Labs: Sodium 139 mmol/L (136-145) 10/07/24 06:00 Potassium 3.4 mmol/L (3.5-5.1) L 10/07/24 06:00 Chloride 102 mmol/L (98-107) 10/07/24 06:00 Magnesium 1.5 mg/dL (1.8-2.4) L 10/06/24 14:30 Electrolytes, C-Reactive P, ESR: Reviewed (IV mag and potassium have been ordered) DM Control DM Control: Glucose 111 mg/dL (74-106) H 10/07/24 06:00 DM Control: Reviewed (No DM noted in patients medical history, no A1c on file.) Cardiac Review BP, HR, EF%: Reviewed (BP has been low to normal and HR has been normal to high so far this admission) QTc Review QTc: N/A IV to PO Switch IV Medications: Reviewed (pt is NPO) Home Meds Home Med List reviewed: Reviewed Relevent Home Meds Not ordered & why?: escitalopram (being held while pt. is NPO per H&P and progress note), oral control (NPO, hold per provider) Current Meds Current Medication Order Review: Intervened (acetaminophen order entered Q6H PRN JENA, checking with provider on if they wanted it PRN or scheduled) Pharmacy Antibiotic Review Pharmacy Antibiotic Activity: Reviewed, no change (Ceftriaxone and metronidazole ordered due to acute perforated appendicitis (day 1).) Comments Comments/Follow Ups: Watch BP, HR, K+, mag, labs and for med changes (IV to PO and home meds once pt is no longer NPO, possible BM meds)
[2024-10-07] MEDS: Ondansetron 4 MG/2 ML VIAL IVP ×2 (11:48→20:08)
[2024-10-07] MEDS: POTASSIUM CHLORIDE 10 MEQ/100 ML BAG 100 MEQ IV_INF (12:17)
--- NOTE | 2024-10-07 13:24 | W.NUTRFU ---
Date of service: 10/07/24 Time of Service: 13:24 Nutrition Note NOTE: 38yo female admitted after complaints of rlq pain - found to be appendicitis. Per sugical notes sounds like surgery not planned at this time as pt seems to be doing well with Abx - plan is to keep NPO over the weekend. PT current BMI consistent with class III obesity. fasting glucose today of 111 with no recorded A1C in chart - would suggest current A1C lab. Nutrition dx: inadequate intake d/t extended npo status related to managing appendicitis with perforation. Will monitor labs, weight, and diet advancement - will provide info on outpatient services prior to discharge if pt interested in support with weight mgt. Time Spent in Nutritional Counseling and Treatment: 0
--- NOTE | 2024-10-07 13:32 | NUR.NOTE ---
Nursing Note: Reviewed documentation by Francie Godwin, student CNA PER DIEM. Agree with assessment.
[2024-10-07] MEDS: ACETAMINOPHEN 1,000 MG/100 ML BAG 400 MG IVPB ×2 (14:06→18:32)
[2024-10-07 14:27] VITALS: TEMP 36
--- NOTE | 2024-10-07 16:07 | CHAPLAIN ---
I was called by ED staff to visit Jocelyne yesterday when she was in the ED. She came in with abdominal pain and was told that she'd likely have surgery to have her appendix removed. She was nervous about this. She asked good questions to the ED staff and was able to speak with her stepmom and have the ED doctor speak with her stepmom as well. Jocelyne explained that the stepmom is actually her sister Suzanne's mom. Suzanne and Jocelyne share a dad. Jocelyne said she has relied on Suzanne's mom as she's not in touch with her own mom. 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 They all live together. Once situations were explained and Jocelyne's questions were answered she was agreeable. She remained pleasant the whole time and was able to articulate when she was scared. She hasn't been in a hospital before. Later Jocelyne was admitted. I visited her this morning while Dr. Lozano was in the room and he explained that they will be treating Jocelyne with anitbiotics rather than surgery so she'll likely be here a week. Jocelyne asked if Suzanne could stay overnight with her, and Jocelyne's nurse Neli was looking into that.
[2024-10-07] MEDS: cefTRIAXone 2 GM/50 ML BAG IVPB (18:45)
[2024-10-07] MEDS: Enoxaparin 40 MG/0.4 ML SYR SC (18:54)
[2024-10-07 19:15] VITALS: BP 110/58; PULSE 84; RESP 20; TEMP 36.8; O2SAT 96
[2024-10-07] MEDS: Normal Saline Flush 10 ML SYR IVP (20:13)
[2024-10-07 21:58] VITALS: BP 111/50; PULSE 82; RESP 20; TEMP 36.4; O2SAT 97
[2024-10-07] MEDS: HYDROmorphone 2 MG/ML SYR 0.5 MG IVP (22:40)
[2024-10-08] MEDS: Ketorolac 30 MG/ML VIAL IVP ×4 (00:09→21:16)
[2024-10-08] MEDS: ACETAMINOPHEN 1,000 MG/100 ML BAG 400 MG IVPB ×4 (00:27→19:44)
[2024-10-08] MEDS: Ondansetron 4 MG/2 ML VIAL IVP ×3 (00:49→14:05)
[2024-10-08] MEDS: metroNIDAZOLE 500 MG/100 ML BAG 100 MG IVPB ×4 (02:01→21:17)
[2024-10-08 03:35] VITALS: BP 103/62; PULSE 70; RESP 18; TEMP 36.2; O2SAT 98
[2024-10-08] MEDS: Lactated Ringers 1,000 ML 125 ML IV ×2 (04:52→23:15)
--- NOTE | 2024-10-08 06:14 | DI.RAD_ITS ---
Exam(s) XR ABDOMEN FLAT PLATE EXAM: XR ABDOMEN FLAT PLATE CLINICAL HISTORY: Nausea and vomiting with concern for ileus. TECHNIQUE: 2D digital imaging was performed. COMPARISON: Prior CT scan performed 10/06/2024 was reviewed. FINDINGS: AP supine view the abdomen-pelvis Recent CT scan 2 days ago revealed acute perforated appendicitis. The stomach is not distended. There is air seen throughout the length of the colon without significant distension. No dilated bowel loops. Cannot assess for free air as this is a supine a few and also does not include the superior aspect of the hemidiaphragms. Regional bones appear unremarkable. IMPRESSION: No obvious bowel obstruction. Air throughout the colon is probably element of I ileus in this patient who had perforated acute diverticulitis on CT scan 2 days ago. DATA REPOSITORY: RADIATION DOSE DELIVERED:
[2024-10-08 06:37] LABS: HCT 35.1 % (36.0-46.0); HGB 11.6 g/dL (11.2-15.7); MCH 30.3 pg (27.0-33.0); MCV 92 fL (80-95); MPV 9.1 fL (8.0-11.0); Platelet Count 178 10^3/uL (130-400); RBC 3.83 10^6/uL (3.93-5.22); RDW 13.1 % (11.7-14.6); WBC 10.36 10^3/uL (4.4-10.8)
--- NOTE | 2024-10-08 06:44 | DI.VRAD_ITS ---
PROCEDURE INFORMATION: Exam: XR Abdomen Exam date and time: 10/08/2024 6:13 AM Age: 38 years old Clinical indication: Nausea and vomiting with concern for ileus TECHNIQUE: Imaging protocol: Radiologic exam of the abdomen. Views: Frontal supine view of the abdomen. 1 View. COMPARISON: CT ABDOMEN PELVIS W 10/06/2024 3:22 PM FINDINGS: Gastrointestinal tract: Paucity of small bowel gas can be seen in the setting of fluid-filled loops of small bowel. Bones/joints: Unremarkable. IMPRESSION: Findings which can be seen in gastroenteritis. No evidence for obstruction. Dictated and Authenticated by: Bhargav Barrow MD. Orderin Blake Dawkins MD
[2024-10-08 06:46] LABS: Anion Gap 11.5 mmol/L (3-11); BUN 9 mg/dL (7-18); CO2 25.5 mmol/L (21.0-32.0); CREATININE 0.7 mg/dL (0.55-1.02); Calcium 8.9 mg/dL (8.5-10.1); Chloride 103 mmol/L (98-107); Estimated GFR 114.88 (mL/min/1.73m2); Glucose 84 mg/dL (74-106); Magnesium 2.1 mg/dL (1.8-2.4); Potassium 3.5 mmol/L (3.5-5.1); Sodium 140 mmol/L (136-145)
[2024-10-08] MEDS: Escitalopram 10 MG TAB PO (11:28)
[2024-10-08 11:31] VITALS: BP 94/49; PULSE 67; RESP 15; TEMP 35.4; O2SAT 100
--- NOTE | 2024-10-08 12:01 | PGE_ITS ---
Date of Service Date of service: 10/08/24 Time of Service: 12:01 Assessment and Plan Assessment and plan (1) Acute perforated appendicitis: Status: Acute Assessment and plan: Continues to do well. Does not clinically appear to be worsening from the perspective of her intra-abdominal infection. Currently on Rocephin and Flagyl. Has parenteral analgesics. She had swelling on her right arm with laboratory draw, her right arm currently is elevated. Her labs today look normal. White blood cell count has normalized, the electrolyte abnormalities have improved as well. Will give her a lab holiday tomorrow, plan for labs on Thursday. Plan to repeat her CT scan with IV and oral contrast on Thursday. (2) Depression: Status: Chronic Assessment and plan: She had some dizziness yesterday, with pelvic pain, as well as nausea with vomiting. Could be secondary to the appendicitis, however her KUB today did not show any evidence of ileus or obstruction. Likely from withdrawal of SSRI. Will restart her Lexapro, with a small sip of water. (3) Encounter for surveillance of contraceptive pills: Status: Acute Assessment and plan: Have restarted patient's OCP as well. She can take this with a small sip of water. If this is abruptly stopped, will cause irregularity in her cycle, also may cause some mood swings as well. Subjective Subjective Interval history since last seen: Ms. Ackerman with some frustration today, she indicates that she was informed she might be leaving over the weekend, and this caused her some significant anxiety. Overnight she did have some dizziness, lower abdominal pain and nausea with vomiting. She currently does not have nausea this morning when examined. Exam Narrative Exam Narrative: Pleasant adult female, she is anxious. She was examined with her nurse present as a gluing machine feeder. Vital signs show some low blood pressure, likely normal physiologic for her, no fevers for the past 24 hours. She has some abdominal obesity, with subcutaneous fat deposition. There are diminished bowel sounds. Palpably her abdomen nondistended, with minimal tenderness to palpation in the right lower quadrant. Objective Last Vital Signs Temp 35.4 C L 10/08/24 11:31 Pulse 67 10/08/24 11:31 Resp 15 10/08/24 11:31 BP 94/49 L 10/08/24 11:31 Pulse Ox 100 10/08/24 11:31 Laboratory Results - last 24 hr 10/08/24 06:27 WBC 10.36 RBC 3.83 L Hgb 11.6 Hct 35.1 L MCV 92 MCH 30.3 MCHC 33.0 RDW 13.1 Plt Count 178 MPV 9.1 Sodium 140 Potassium 3.5 Chloride 103 Carbon Dioxide 25.5 Anion Gap 11.5 H BUN 9 Creatinine 0.7 Est GFR (CKD-EPI 2020) 114.88 Glucose 84 Calcium 8.9 Magnesium 2.1 Time Spent with Patient Time Spent with Patient: 25-34 minutes Time was spent: preparing to see the patient(eg.review tests), obtaining and/or reviewing separately otained hiistory, indepentently interpreting results and counseling the patient
[2024-10-08 15:23] VITALS: BP 128/75; PULSE 88; RESP 15; TEMP 36.2; O2SAT 98
[2024-10-08] MEDS: Promethazine 25 MG TAB PO (15:23)
[2024-10-08] MEDS: cefTRIAXone 2 GM/50 ML BAG IVPB (17:52)
[2024-10-08 19:20] VITALS: BP 131/63; PULSE 75; RESP 16; TEMP 36.7; O2SAT 98
[2024-10-08] MEDS: Enoxaparin 40 MG/0.4 ML SYR SC (19:42)
[2024-10-08] MEDS: Normal Saline Flush 10 ML SYR IVP (19:45)
[2024-10-08] MEDS: HYDROmorphone 2 MG/ML SYR 0.5 MG IVP (22:49)
[2024-10-08 23:15] VITALS: BP 117/56; PULSE 80; RESP 16; TEMP 35.4; O2SAT 98
[2024-10-09] MEDS: ACETAMINOPHEN 1,000 MG/100 ML BAG 400 MG IVPB ×4 (02:21→20:02)
[2024-10-09] MEDS: metroNIDAZOLE 500 MG/100 ML BAG 100 MG IVPB ×4 (02:56→20:54)
[2024-10-09] MEDS: Lactated Ringers 1,000 ML 125 ML IV ×2 (07:22→20:54)
[2024-10-09 07:45] VITALS: BP 119/61; PULSE 71; RESP 18; TEMP 36.3; O2SAT 98
[2024-10-09] MEDS: Ketorolac 30 MG/ML VIAL IVP ×2 (07:53→14:45)
[2024-10-09] MEDS: Escitalopram 10 MG TAB PO (07:53)
[2024-10-09] MEDS: Normal Saline Flush 10 ML SYR IVP ×4 (07:53→17:28)
[2024-10-09] MEDS: Ondansetron 4 MG/2 ML VIAL IVP (10:44)
[2024-10-09 11:40] VITALS: BP 130/67; PULSE 66; RESP 15; TEMP 36.4; O2SAT 98
--- NOTE | 2024-10-09 12:46 | PGE_ITS ---
Date of Service Date of service: 10/09/24 Time of Service: 12:46 Assessment and Plan Assessment and plan (1) Acute perforated appendicitis: Status: Acute Assessment and plan: Objectively, appears to be responding well to intravenous antibiotics. The patient still does have some anxiety about her level of pain. Tomorrow morning plan for a CT scan with IV and oral contrast. I specifically discussed with her, that the contrast will be about a liter size bottle, and that she should drink this slowly. (2) Depression: Status: Chronic Assessment and plan: She does have depression, she is currently taking Lexapro. This has been restarted, she is taking this with a small sip of water. (3) Encounter for surveillance of contraceptive pills: Status: Acute Assessment and plan: She is taking an oral contraceptive pill. Have restarted this. Wish to avoid any mood swings, with withdrawal of OCP, or potential change in her hormonal cycle. (4) Anxiety: Status: Chronic Assessment and plan: She does have anxiety, I have restarted the Lexapro for this. She also has Phenergan oral which has been ordered for nausea, but can also have some anxiolytic effect. Wish to avoid benzodiazepines. Subjective Subjective Interval history since last seen: Ms. Ackerman still having anxiety. She reports some vomiting, although this was not witnessed by the nurses. (Suspect that this was retching). She is still passing liquid stools. She still is hungry, although less than yesterday. Still reports abdominal pain in the right lower quadrant. Today she indicates that this is about the same from her presentation, on discussion with patient's nurse today her pain has not significantly fluctuated. She has ambulated once or twice. Exam Narrative Exam Narrative: Examined patient today with her nurse present. Patient's vital signs show that she is afebrile. Her heart rate and blood pressure are normal. Her abdomen is soft, almond cutting machine tender in the right lower quadrant, not overtly distended. There is some tympany to percussion in the upper abdomen at the epigastrium. Objective Last Vital Signs Temp 36.4 C L 10/09/24 11:40 Pulse 66 10/09/24 11:40 Resp 15 10/09/24 11:40 BP 130/67 10/09/24 11:40 Pulse Ox 98 10/09/24 11:40 Objective Narrative Objective Narrative: Laboratory values not performed today, patient given lab holiday, she had significant discomfort with IV blood draw yesterday, with right forearm and hand swelling.. Time Spent with Patient Time Spent with Patient: 25-34 minutes Time was spent: obtaining and/or reviewing separately otained hiistory, ordering medications,tests, procedures and counseling the patient
[2024-10-09 15:31] VITALS: BP 120/63; PULSE 74; RESP 14; TEMP 36.1; O2SAT 99
[2024-10-09] MEDS: cefTRIAXone 2 GM/50 ML BAG IVPB (17:29)
[2024-10-09 19:48] VITALS: BP 123/62; PULSE 72; RESP 16; TEMP 36.7; O2SAT 98
[2024-10-09] MEDS: Promethazine 25 MG TAB PO (20:01)
[2024-10-09] MEDS: Enoxaparin 40 MG/0.4 ML SYR SC (20:01)
[2024-10-10] MEDS: ACETAMINOPHEN 1,000 MG/100 ML BAG 400 MG IVPB ×2 (02:11→14:20)
[2024-10-10] MEDS: metroNIDAZOLE 500 MG/100 ML BAG 100 MG IVPB ×2 (02:38→10:30)
[2024-10-10 03:25] VITALS: BP 128/76; PULSE 62; RESP 16; TEMP 36.8; O2SAT 95
--- NOTE | 2024-10-10 06:00 | DI.CT_ITS ---
Exam(s) CT ABDOMEN PELVIS W EXAM: CT ABDOMEN PELVIS W CLINICAL HISTORY: Perf appendicitis, eval for abscess TECHNIQUE: Imaging Protocol: Axial computed tomography images with coronal and sagittal reformatted images were created and reviewed. CONTRAST MATERIAL: Intravenous: Omnipaque 350 Contrast volume:75 mL Oral: Yes COMPARISON: CT CT ABDOMEN PELVIS W from 10/06/2024 FINDINGS: ABDOMEN: Lung Bases: There are small bilateral pleural effusions and subjacent infiltrate in the right lower lobe which may represent atelectasis or pneumonia. Liver: Normal density. No measurable mass. There is focal fatty infiltration in the left lobe of the liver. Portal, Superior Mesenteric, and Splenic Veins: Unremarkable. Gallbladder and Biliary Tract: No radiodense calculus or dilation. Pancreas: Normal density, no abnormal calcifications or inflammatory process. Spleen: Normal. Adrenals: No masses seen. Kidneys: Normal size, contour and axis. No radiodense stones or obstructive uropathy. No masses seen. Abdominal Aorta: Abdominal portion non-dilated. Bowel: There is diverticulosis seen in the sigmoid colon without evidence of acute diverticulitis. There is no evidence of bowel obstruction. There is again seen an inflamed appendix in the right lower quadrant measuring up to 8 mm in diameter. Diana appendiceal inflammation and areas seen consistent with perforation. No in capsulated fluid collection is seen at this time to suggest an abscess. There is a small amount of free fluid in the pelvis. Peritoneal Cavity: No focal fluid collection is seen to suggest an abscess. There is a small amount of free air seen in the right lower quadrant adjacent to the appendix consistent with perforation. Lymph Nodes: Within normal limits. Bones: Within normal limits for the patient's age. Soft Tissues: Unremarkable. PELVIS: Bladder: The urinary bladder is incompletely distended limiting evaluation. Reproductive Organs: Unremarkable as visualized. Lymph Nodes: Within normal limits. Bones: Within normal limits for the patient's age. IMPRESSION: 1. Findings again seen consistent with a perforated appendicitis. 2. No focal fluid collection is seen to suggest a drainable abscess. 3. Interval decrease in the Diana appendiceal inflammation. 4. Small amount of free fluid in the pelvis. RADIATION DOSE DELIVERED: 747.9mGy.cm Total DLP DATA REPOSITORY: All CT scans at this facility are submitted to the National Radiology Data Registry (NRDR) Dose Index Registry (DIR) with the [employer] ([employer]). RADIATION OPTIMIZATION: All CT scans at this facility use at least one of these dose optimization techniques: automated exposure control; mA and/or kV adjustment per patient size (includes targeted exams where dose is matched to clinical indication); or iterative reconstruction.
[2024-10-10 07:11] LABS: HCT 31.5 % (36.0-46.0); HGB 10.4 g/dL (11.2-15.7); MCH 30.5 pg (27.0-33.0); MCV 92 fL (80-95); MPV 9.2 fL (8.0-11.0); Platelet Count 246 10^3/uL (130-400); RBC 3.41 10^6/uL (3.93-5.22); RDW 13.2 % (11.7-14.6); RDW-SD 44.6 fL; WBC 8.92 10^3/uL (4.4-10.8)
[2024-10-10] MEDS: Breeza Beverage 473 ML BTL PO ×2 (07:27→07:29)
[2024-10-10] MEDS: Omnipaque 350 MG/ML 50 ML BTL PO (07:29)
[2024-10-10 07:34] LABS: Anion Gap 15.6 mmol/L (3-11); BUN 6 mg/dL (7-18); CO2 21.4 mmol/L (21.0-32.0); CREATININE 0.7 mg/dL (0.55-1.02); Calcium 8.3 mg/dL (8.5-10.1); Chloride 105 mmol/L (98-107); Estimated GFR 114.88 (mL/min/1.73m2); Glucose 86 mg/dL (74-106); Magnesium 1.5 mg/dL (1.8-2.4); Potassium 3.2 mmol/L (3.5-5.1); Sodium 142 mmol/L (136-145)
[2024-10-10 07:43] VITALS: BP 127/75; PULSE 70; RESP 15; TEMP 36.2; O2SAT 97
[2024-10-10 07:54] LABS: Absolute Lymphocyte Count 1.69 10^3/uL (1.2-3.4); Absolute Monocyte Count 0.09 10^3/uL (0.1-0.8); Diff Comment Manual Differential; RBC Morphology Normal
[2024-10-10 08:33] LABS: Absolute Neutrophil Count 7.14 10^3/uL (1.2-6.7)
--- NOTE | 2024-10-10 09:14 | CMPROGNOTE_ITS ---
Date of service: 10/10/24 Time of Service: 09:14 Care Management Progress Note Progress Note Text Progress Note Text: Jocelyne was awake and sitting in a recliner when CM met with her. She expresses frustration and reports that she is angry, specifically because she feels she is being pushed out of the hospital and doesn't feel 100% yet. CM provided patient with a general overview of admission/discharge criteria and reminded her that her CT results (which are currently pending) will help determine her plan of care. Jocelyne also shared with CM that she feels she has been receiving conflicting information throughout her stay and feels like no one is helping her other than Dr. Lozano. She feels it would be better for her to be seen only by Dr. Lozano and have the same nurse throughout her stay but also acknowledges the limitations of this request. Jocelyne has a HX of anxiety and depression and graciously accepted an adult coloring book and colored pencils. CM will continue to follow and encouraged patient to reach out to CM for support when needed. Discharge Potential Discharge Needs: PCP F/U Appt and Surgical F/U Appt Anticipated Barriers to Discharge: None Identified Patient/Family Education Needs: Review discharge instructions, discuss Ask Me Three Transportation: Private vehicle Plan: Anticipate, Jocelyne will discharge home with no new services. She will f/u with the T-doc and continue per her plan of care. She will transport in a private vehicle. CM will continue to follow. Social Determinants of Health Screening Social Determinants of health last assessed in clinic: 10/10/24 Will the Patient Participate in the Screening?: Yes Do you worry about having a steady place to live?: no Problems where you live: no known problems In the past 12 months, have you had to go without electric, gas, oil or water in your home?: no 1. Within the past 12 months, we worried whether our food would run out before we got money to buy more.: Never true 2. Within the past 12 months, the food we bought just didn't last and we didn't have money to get more.: Never true Has lack of transportation kept you from medical appointments or from doing things needed for daily living?: no Has anyone in your life made you feel unsafe or unsupported?: no How hard is it for you to pay for the very basics like food, housing, medical care, and heating? Would you say it is:: Not hard at all Do you want help finding or keeping work or a job?: I do not need or want help If for any reason you need help with day-to-day activities such as bathing, preparing meals, shopping, managing finances, etc., do you get the help you need?: I don?t need any help How often do you feel lonely or isolated from those around you?: Never Do you speak a language other than Ukrainian at home?: No Does the patient want assistance with any of the above?: No
[2024-10-10] MEDS: Omnipaque 350 MG/ML 100 ML BTL 75 ML IJ (09:48)
[2024-10-10] MEDS: Normal Saline - Diluent 50 ML VIAL IJ (09:50)
[2024-10-10] MEDS: Escitalopram 10 MG TAB PO (10:15)
[2024-10-10] MEDS: Normal Saline Flush 10 ML SYR IVP (10:15)
[2024-10-10 11:53] VITALS: BP 132/75; PULSE 68; RESP 15; TEMP 36.6; O2SAT 99
[2024-10-10 15:23] VITALS: BP 123/83; PULSE 79; RESP 12; TEMP 37; O2SAT 96
--- NOTE | 2024-10-10 16:43 | W.PM.PROGNOT ---
Date of Service Date of service: 10/10/24 Time of Service: 16:43 Assessment and Plan Assessment and plan (1) Acute perforated appendicitis: Status: Acute Assessment and plan: Personally reviewed the patient's CT scan, the images as well as the radiologist read. The fluid in the pelvis does appear to be diminishing in size. There still is inflammation in the right lower quadrant, consistent with perforated appendicitis. There is not at this time an abscess that has developed Will plan for advancement of patient's diet to a bland heart healthy diet. Will see how she does with this, also will change her antibiotics to oral antibiotics. If she tolerates her diet well, and is comfortable going home we may be able to send her home tomorrow morning with oral antibiotics, and close follow-up in clinic, likely Thursday at 10 AM. (2) Hypokalemia: Status: Acute Assessment and plan: She does have some hypokalemia, have ordered 40 mill equivalents of oral potassium chloride. Subjective Subjective Interval history since last seen: Patient still having pain today, she is not reporting nausea. She still is anxious, but less anxious than prior days. Reports that she drank the contrast with no difficulty, and actually indicates that it tasted quite good. She has had some diarrhea from the contrast. Exam Narrative Exam Narrative: Examined patient's abdomen today, soft, still some mild tenderness in the right lower quadrant, nondistended. Objective Last Vital Signs Temp 37 C 10/10/24 15:23 Pulse 79 10/10/24 15:23 Resp 12 10/10/24 15:23 BP 123/83 10/10/24 15:23 Pulse Ox 96 10/10/24 15:23 Laboratory Results - last 24 hr 10/10/24 06:30 WBC 8.92 RBC 3.41 L Hgb 10.4 L Hct 31.5 L MCV 92 MCH 30.5 MCHC 33.0 RDW 13.2 Plt Count 246 MPV 9.2 Immature Gran % 0.0 Neutrophils % 80.0 Lymphocytes % 19.0 Monocytes % 1.0 Eosinophils % 0.0 Basophils % 0.0 Nucleated RBC % 0.0 Absolute Neutrophils 7.14 H Absolute Lymphocytes 1.69 Absolute Monocytes 0.09 L Absolute Eosinophils 0.00 Absolute Basophils 0.00 RBC Morphology Normal Sodium 142 Potassium 3.2 L Chloride 105 Carbon Dioxide 21.4 Anion Gap 15.6 H BUN 6 L Creatinine 0.7 Est GFR (CKD-EPI 2020) 114.88 Glucose 86 Calcium 8.3 L Magnesium 1.5 L Time Spent with Patient Time Spent with Patient: 25-34 minutes Time was spent: preparing to see the patient(eg.review tests), obtaining and/or reviewing separately otained hiistory, ordering medications,tests, procedures, indepentently interpreting results, counseling the patient and care coordination
[2024-10-10] MEDS: Potassium Chloride 20 MEQ TABCR 40 MEQ PO (17:17)
[2024-10-10] MEDS: levoFLOXacin 500 MG TAB PO (17:18)
[2024-10-10] MEDS: Ibuprofen 600 MG TAB PO (17:18)
[2024-10-10] MEDS: metroNIDAZOLE 500 MG TAB PO (17:18)
[2024-10-10 19:47] VITALS: BP 132/67; PULSE 79; RESP 16; TEMP 36.1; O2SAT 97
[2024-10-10] MEDS: Acetaminophen 500 MG TAB PO (19:49)
[2024-10-10] MEDS: Enoxaparin 40 MG/0.4 ML SYR SC (19:50)
[2024-10-10 23:32] VITALS: BP 127/74; PULSE 80; RESP 19; TEMP 36; O2SAT 99
[2024-10-11] MEDS: Acetaminophen 500 MG TAB PO ×4 (00:36→19:28)
[2024-10-11] MEDS: Ibuprofen 600 MG TAB PO ×2 (00:36→15:57)
[2024-10-11] MEDS: metroNIDAZOLE 500 MG TAB PO ×2 (00:36→10:20)
[2024-10-11 07:49] VITALS: BP 129/71; PULSE 65; RESP 16; TEMP 36.7; O2SAT 98
[2024-10-11] MEDS: Escitalopram 10 MG TAB PO (10:19)
[2024-10-11] MEDS: levoFLOXacin 500 MG TAB PO (10:19)
[2024-10-11 11:38] VITALS: BP 125/76; PULSE 77; RESP 17; TEMP 36.3; O2SAT 98
--- NOTE | 2024-10-11 13:59 | CHAPLAIN ---
Jocelyne was sitting up at the edge of her bed coloring on an [id number] table. She's also interested in playing cards. She said her stomach still hurts. She's begun drinking and eating a little bit. Jocelyne said her sister has been in to visit, but her step alesia hasn't been able to yet. Jocelyne helps care for her sister's two children. I will continue to visit.
[2024-10-11 15:31] VITALS: BP 124/83; PULSE 74; RESP 16; TEMP 36.4; O2SAT 97
--- NOTE | 2024-10-11 15:46 | DSE_ITS ---
Date of service: 10/11/24 Time of Service: 15:52 DS: Diagnosis Discharge Diagnosis (1) Acute perforated appendicitis: Status: Acute Asessment and Plan: Patient with acute perforated appendicitis. This appeared to have been present for some time. She was treated with antibiotics, kept n.p.o., a CT scan was obtained after 4 days with IV contrast, did not show worsening of the area of inflammation, nor abscess development. She is planned for discharge home today with oral antibiotics, and close clinic follow-up. (2) Hypokalemia: Status: Acute Asessment and Plan: Treated with intravenous as well as enteral potassium supplementation. Discharge Plan Disposition Patient Disposition: Home Condition: Stable Discharge Details Reason For Visit: Acute appendicitis Admit Date/Time: 10/06/24 17:42 Admit Provider: Juancho Lozano Attending Provider: Juancho Lozano Primary Care Provider: None,None Hospital Course Hospital Course: Patient is a 38-year-old female, she has a history of depression and anxiety, as well as learning disability, she presented to the hospital on 10/06/2024, was found to have perforated appendicitis, and appeared longstanding in nature. She was managed medically. Given antibiotics, kept n.p.o. for about 4 days, underwent repeat cross-sectional imaging, found to have slight improvement in the inflammation, with no ileus. She was restarted on diet which she has been able to tolerate, is planned for close outpatient follow-up. She will come back to clinic on Thursday at 10 AM. She does have some anxiety about leaving the hospital. Clinically she has been stable, if on subsequent evaluation clinic she continues to have pain we will plan for either admission to the emergency department, or outpatient CT scan. Home Meds and New Rx's Prescriptions: New acetaminophen 500 mg Tablet 500 mg PO Q4H 14 Days Qty: 30 0RF ibuprofen 600 mg Tablet 600 mg PO Q6H PRN PRN14 Days Qty: 15 0RF levofloxacin 500 mg Tablet 500 mg PO DAILY 14 Days Qty: 14 0RF metronidazole 500 mg tablet 500 mg PO Q8H 14 Days Qty: 42 0RF Continued norgestimate-ethinyl estradiol 0.25-0.035 mg tablet 1 tab PO DAILY Patient Comments: TAKE 1 TABLET BY MOUTH ONCE A DAY FOR CONTRACEPTION AND START THE... (REFER TO PRESCRIPTION NOTES). escitalopram oxalate 10 mg tablet 10 mg PO DAILY Patient Comments: take 1 tablet by mouth once daily for MOOD Discharge Instructions Instructions: Mediterranean Diet, Diet and health, Weight Loss Diet, Dietary Fats, Making Healthy Choices When You Grocery Shop, Making Healthy Choices When You Eat Out, Gastrointestinal tract perforation, Low-fat diet Additional Instructions: Patient has been provided with several resources for healthy eating. Should certainly avoid fast foods, greasy and fatty foods. Activity:: Activity as Tolerated Equipment/Supplies:: No Equipment Needed Diet:: Other Discharge Orders Discharge Orders: Discharge Order (Routine); Ordered 10/11/24 Ordered By: Juancho Lozano DS: Summary Time Spent with Patient providing and/or coordinating discharge services: Greater than 30 minutes Status at Discharge Functional status at discharge: independent ambulation Overall status at discharge: patient is progressing back to baseline Mental Status: mental status grossly normal Speech and Movement: speech and movement normal Mood: anxious mood Affect: anxious affect Exam Narrative Exam Narrative: Patient feeling improved today, her abdomen was examined, soft, still with some tenderness in the right lower quadrant, but improved from presentation. Psych Mental Status: mental status grossly normal Speech and Movement: speech and movement normal Mood: anxious mood Affect: anxious affect DS: Data Vitals/I&O Vitals and I&O: Vital Signs Temperature 36.4 C L 10/11/24 15:31 Temperature Source Temporal Artery Scan 10/11/24 15:31 Pulse 74 10/11/24 15:31 Pulse Rhythm Regular 10/06/24 18:18 Respiratory Rate 16 10/11/24 15:31 Respiratory Effort Normal, Non-Labored 10/06/24 18:18 Respiratory Depth Normal 10/06/24 18:18 Respiratory Pattern Normal 10/06/24 18:18 Blood Pressure 124/83 10/11/24 15:31 Blood Pressure Mean 96 10/11/24 15:31 Pulse Oximetry 97 10/11/24 15:31 Oxygen Delivery Method Room Air 10/11/24 15:31 Oxygen Flow Rate 0 10/11/24 15:31 Pain Level 7 10/11/24 07:49 Comment RN notified of BP 10/08/24 11:31 Intake & Output 10/10/24 10/11/24 10/11/24 23:59 11:59 23:59 Intake Total 300 / 1600 100 / 340 240 / 340 Output Total 1000 / 2300 1200 / 1400 200 / 1400 Balance -700 / -700 -1100 / -1060 40 / -1060 Intake: IV 300 / 1600 100 / 100 Oral 240 / 240 Output: Urine 1000 / 2300 1200 / 1400 200 / 1400 Other: Urine Color Yellow Dark Suzanne Dark Suzanne Urine Appearance Sediment Cloudy Urine Odor Normal Strong Comment pt voided moderate amount into toilet blood due to period Stool Size Small Small Small Stool Characteristics Formed Soft Soft Formed PFSH All Active Problems (Updated 10/11/24 @ 14:49 by Juancho Lozano MD) Anxiety (Chronic) Encounter for surveillance of contraceptive pills (Acute) Depression (Chronic) Sepsis (Acute) Hypomagnesemia (Acute) Hypokalemia (Acute) Acute perforated appendicitis (Acute) Social History Smoking/Tobacco Use Status: Never Smoking risk assessment performed?: Yes Alcohol Intake: current Alcohol Intake frequency: holidays/special occasions only Drug use: Rarely Substance use type: marijuana Housing: house Time Spent with Patient Time Spent with Patient: <45 minutes Time was spent: preparing to see the patient(eg.review tests), referring, communicating with other health healthcare business analyst, indepentently interpreting results and counseling the patient
--- NOTE | 2024-10-11 17:01 | PDOC.CMDIS ---
Date of service: 10/11/24 Time of Service: 17:01 LACE Index Scoring Tool Questions: Length of Stay (in days): 4 - 6 Was the patient admitted via the E.D.?: Yes E.D. Visits: 1 Answers: Total Score: 8 Risk of Readmission: Low Risk Care Management Discharge Plan Reason for Hospitalization: Perforated appendicitis Discharge Plan: Discharge home via private vehicle with sister. Follow up with community providers and discharge plan of care as directed. No new services are ordered prior to discharge. Patient/Family Education Needs: Review d/c instructions and plan of follow up after discharge. Discuss ask me three.
[2024-10-11] MEDS: diphenhydrAMINE 25 MG CAP 50 MG PO (17:11)
[2024-10-11] MEDS: Enoxaparin 40 MG/0.4 ML SYR SC (19:28)
--- NOTE | 2024-10-11 19:54 | PGE_ITS ---
Date of Service Date of service: 10/11/24 Time of Service: 05:30 Assessment and Plan Assessment and plan (1) Drug reaction: Status: Acute Assessment and plan: Patient with drug reaction, just prior to discharge. Suspect that this is Levaquin. Have stopped the Levaquin, added this to patient's allergies. Ordered 50 mg of Benadryl. Discussed with patient today, as well as her mother and sister, will cancel patient's discharge, keep her overnight and see how she feels. It might be possible to send her home on Augmentin, although this is not the ideal antibiotic. (2) Acute perforated appendicitis: Status: Acute Assessment and plan: Clinically still doing well, discharge held as above. (3) Depression: Status: Chronic Assessment and plan: Unchanged from prior, her Lexapro will continue. (4) Anxiety: Status: Chronic Assessment and plan: Lexapro as above. Subjective Subjective Interval history since last seen: Patient was planned for discharge today. Just prior to discharge she developed a rash on her upper chest, maxillary region, and neck. Objective Last Vital Signs Temp 36.4 C L 10/11/24 15:31 Pulse 74 10/11/24 15:31 Resp 16 10/11/24 15:31 BP 124/83 10/11/24 15:31 Pulse Ox 97 10/11/24 15:31 Objective Narrative Objective Narrative: Examined patient today with her nurse present as an staff physical therapy assistant and relocation services specialist. Patient does have a erythematous rash on her upper chest, some mild rash on her back, and maxillary region of her face. Time Spent with Patient Time Spent with Patient: 25-34 minutes Time was spent: preparing to see the patient(eg.review tests), obtaining and/or reviewing separately otained hiistory, indepentently interpreting results, counseling the patient and care coordination
[2024-10-11 20:40] VITALS: BP 116/90; PULSE 80; RESP 18; TEMP 36.5; O2SAT 98
[2024-10-12] MEDS: Acetaminophen 500 MG TAB PO ×7 (00:47→23:51)
[2024-10-12] MEDS: metroNIDAZOLE 500 MG TAB PO ×4 (00:47→23:51)
[2024-10-12] MEDS: Ibuprofen 600 MG TAB PO ×5 (00:47→23:51)
[2024-10-12 07:39] VITALS: BP 106/63; PULSE 74; RESP 15; TEMP 36.4; O2SAT 96
[2024-10-12] MEDS: Escitalopram 10 MG TAB PO (08:24)
[2024-10-12] MEDS: cefTRIAXone 2 GM/50 ML BAG IVPB (08:25)
[2024-10-12 11:04] VITALS: BP 122/67; PULSE 77; RESP 14; TEMP 36.9; O2SAT 96
--- NOTE | 2024-10-12 11:36 | CHAPLAIN ---
Jocelyne was sitting up at the edge of her bed, playing with her phone when I stopped. She said she didn't sleep well last night, but doesn't usually sleep well at home either. She said her she still has pains in her stomach, but acknowledged that might be for a while. She was waiting to take a shower and then her nurse arrived to arrange for the shower.
--- NOTE | 2024-10-12 12:25 | W.PM.PROGNOT ---
Date of Service Date of service: 10/12/24 Time of Service: 12:25 Assessment and Plan Assessment and plan (1) Drug reaction: Status: Acute Assessment and plan: This does appear to be regressing and improving, she had some erythema following ingestion of oral Levaquin. Discussed today with pharmacist regarding proper oral medication to start patient on. Bactrim and Flagyl is a common combination however if she were to develop a rash to the Bactrim, or if her rash persists this could result in her being diagnosed unnecessarily with a Bactrim allergy. She is already taking a cephalosporin, and does not appear to have adverse reaction to this. Will stop the Rocephin, and start her on oral Omnicef. See how this does, I think keep her here until Thursday, repeat her CT scan then, and if it is still clear, plan to send her home on Omnicef and flagyl. (2) Acute perforated appendicitis: Status: Acute Assessment and plan: Clinically still doing well, and tolerating diet. It has been a few days since her last laboratory values. Will order laboratory values for tomorrow. (3) Depression: Status: Chronic Assessment and plan: Unchanged from prior, her Lexapro will continue. (4) Anxiety: Status: Chronic Assessment and plan: Lexapro as above. Subjective Subjective Interval history since last seen: Ms. Ackerman today is feeling well. She does report that the area of redness has improved slightly on her chest, on her right arm she still has some erythematous inflammation. She continues have pain in her right lower quadrant, not significantly changed from yesterday. No nausea no vomiting. Exam Narrative Exam Narrative: Examined patient with her nurse present as a database reporting consultant and geological survey field assistant. Patient was first examined in the supine position, her abdomen is soft, still with some mild tenderness in the right lower quadrant, and nondistended. Her skin was examined as well. In the skin on her upper chest, is less erythematous than yesterday, still slightly warm to the touch. On his right arm, there is an area of redness on the lateral aspect of the arm, with some warmth to the touch. The facial the sites of erythema have regressed and improved. Objective Last Vital Signs Temp 36.9 C 10/12/24 11:04 Pulse 77 10/12/24 11:04 Resp 14 06/18/25 11:04 BP 122/67 10/12/24 11:04 Pulse Ox 96 10/12/24 11:04 Time Spent with Patient Time Spent with Patient: 25-34 minutes Time was spent: preparing to see the patient(eg.review tests), referring, communicating with other health child care cook, indepentently interpreting results, counseling the patient and care coordination
[2024-10-12] MEDS: Cefdinir 300 MG CAP 600 MG PO (14:58)
[2024-10-12 15:22] VITALS: BP 135/66; PULSE 81; RESP 17; TEMP 36.8; O2SAT 98
--- NOTE | 2024-10-12 18:34 | PDOC.CMPRO ---
Date of service: 10/12/24 Time of Service: 18:34 Care Management Progress Note Progress Note Text Progress Note Text: Jocelyne was sitting in bed, playing on her phone, when CM met with her today. She was very pleasant. She stated that her pain is now a 6-7, where before it was a 10. She is wondering when the pain will go away, and when she will go home. She was supposed to discharge last night, but received a dose of levofloxacin before leaving, and she developed a rash, so she was kept for monitoring. Provider note says she will stay 2 more nights, repeat her CT scan, and if clear send her home on Omnicef and flagyl. Jocelyne will need an appointment with the T-doc from her admission - Jesi Kinney at [facility]. Discharge Potential Discharge Needs: PCP F/U Appt (needs to establish with PCP) and Surgical F/U Appt Anticipated Barriers to Discharge: None Identified Patient/Family Education Needs: Review discharge instructions, discuss Ask Me Three (discharge instructions should be discussed with mom or sister as well as Jocelyne) Transportation: Private vehicle Plan: Anticipate that Jocelyne will discharge home once medically cleared by surgery. She will have a hosptial follow up with the T-doc at [facility], and f/u with the surgeon. Jocelyne will transport in a private vehicle and continue per her plan of care. CM will continue to follow. Social Determinants of Health Screening Social Determinants of health last assessed in clinic: 10/12/24 Will the Patient Participate in the Screening?: Yes Do you worry about having a steady place to live?: no Problems where you live: no known problems In the past 12 months, have you had to go without electric, gas, oil or water in your home?: no 1. Within the past 12 months, we worried whether our food would run out before we got money to buy more.: Don't know/refused 2. Within the past 12 months, the food we bought just didn't last and we didn't have money to get more.: Don't know/refused Has lack of transportation kept you from medical appointments or from doing things needed for daily living?: no Has anyone in your life made you feel unsafe or unsupported?: no How hard is it for you to pay for the very basics like food, housing, medical care, and heating? Would you say it is:: Not hard at all Do you want help finding or keeping work or a job?: I do not need or want help If for any reason you need help with day-to-day activities such as bathing, preparing meals, shopping, managing finances, etc., do you get the help you need?: I don?t need any help How often do you feel lonely or isolated from those around you?: Never Do you speak a language other than Barbadian at home?: No Does the patient want assistance with any of the above?: No
[2024-10-12] MEDS: Enoxaparin 40 MG/0.4 ML SYR SC (20:23)
[2024-10-12 23:50] VITALS: BP 125/78; PULSE 84; RESP 18; TEMP 36; O2SAT 97
--- NOTE | 2024-10-13 | DI.CT_ITS ---
Exam(s) CT ABDOMEN PELVIS W EXAM: CT ABDOMEN PELVIS W CLINICAL HISTORY: H/O perf appy, r/o abscess TECHNIQUE: Imaging Protocol: Axial computed tomography images with coronal and sagittal reformatted images were created and reviewed. CONTRAST MATERIAL: Intravenous: Omnipaque 350 Contrast volume:75 mL Oral: No COMPARISON: CT CT ABDOMEN PELVIS W from 10/10/2024 FINDINGS: ABDOMEN: Lung Bases: There is a persistent small right pleural effusion. No left pleural effusion is seen. Liver: Normal density. No measurable mass. Focal fatty infiltration is again seen in the left lobe of the liver. Portal, Superior Mesenteric, and Splenic Veins: Unremarkable. Gallbladder and Biliary Tract: No radiodense calculus or dilation. Pancreas: Normal density, no abnormal calcifications or inflammatory process. Spleen: Normal. Adrenals: No masses seen. Kidneys: Normal size, contour and axis. No radiodense stones or obstructive uropathy. No masses seen. Abdominal Aorta: Abdominal portion non-dilated. Bowel: There is colonic diverticulosis without diverticulitis. There is again seen a perforated appendicitis. There is slight increase in the fluid in the Diana appendiceal region. There is a component more inferiorly which may be in capsulated and represent a small abscess it measures 2 cm x 1.7 cm (series 8, image 74). The remainder of the bowel is unremarkable. Peritoneal Cavity: There is a small amount of fluid in the cul-de-sac. There is again seen a small amount of free air in the Diana appendiceal region. Lymph Nodes: Within normal limits. Bones: Within normal limits for the patient's age. Soft Tissues: Unremarkable. PELVIS: Bladder: Symmetric distention, no gross wall thickening. Reproductive Organs: Unremarkable as visualized. Lymph Nodes: Within normal limits. Bones: Within normal limits for the patient's age. IMPRESSION: 1. Findings again seen of a perforated appendicitis. There is areas seen in the soft tissues around the appendix in the right lower quadrant. 2. There is fluid seen in the right lower quadrant. This has shown slight increased compared to the prior examination. There also appears to be a collection developing measuring 2 x 1.7 cm which may represent a small abscess. 3. Small amount of free fluid in the cul-de-sac. 4. Interval decrease in the pleural effusions with a tiny residual right pleural effusion remaining. RADIATION DOSE DELIVERED: 771.83mGy.cm Total DLP DATA REPOSITORY: All CT scans at this facility are submitted to the National Radiology Data Registry (NRDR) Dose Index Registry (DIR) with the [employer] (ACR). RADIATION OPTIMIZATION: All CT scans at this facility use at least one of these dose optimization techniques: automated exposure control; mA and/or kV adjustment per patient size (includes targeted exams where dose is matched to clinical indication); or iterative reconstruction.
[2024-10-13 06:53] LABS: Abs Immature Grans 0.11 10^3/uL (0.0-0.06); Absolute Basophil Count 0.03 10^3/uL (0.0-0.2); Absolute Eosinophil Count 0.25 10^3/uL (0.0-0.7); Absolute Lymphocyte Count 2.52 10^3/uL (1.2-3.4); Absolute Monocyte Count 0.76 10^3/uL (0.1-0.8); Absolute Neutrophil Count 6.58 10^3/uL (1.2-6.7); Basophils % 0.3 %; Eosinophils % 2.4 %; HCT 31.2 % (36.0-46.0); HGB 10.4 g/dL (11.2-15.7); Immature Grans % 1.1 %; Lymphocytes % 24.6 %; MCH 30.1 pg (27.0-33.0); MCHC 33.3 % (32.0-36.0); MCV 90 fL (80-95); MPV 8.9 fL (8.0-11.0); Monocytes % 7.4 %; Neutrophils % 64.2 %; Platelet Count 314 10^3/uL (130-400); RBC 3.45 10^6/uL (3.93-5.22); RDW 13.1 % (11.7-14.6); RDW-SD 42.8 fL; WBC 10.25 10^3/uL (4.4-10.8)
[2024-10-13] MEDS: metroNIDAZOLE 500 MG TAB PO ×2 (07:35→16:54)
[2024-10-13] MEDS: Escitalopram 10 MG TAB PO (07:35)
[2024-10-13] MEDS: Acetaminophen 500 MG TAB PO ×4 (07:35→19:56)
[2024-10-13] MEDS: Ibuprofen 600 MG TAB PO ×3 (07:35→16:54)
[2024-10-13 07:41] VITALS: BP 129/78; PULSE 77; RESP 14; TEMP 35.9; O2SAT 98
[2024-10-13 07:41] LABS: BUN 7 mg/dL (7-18); CREATININE 0.5 mg/dL (0.55-1.02); Calcium 8.1 mg/dL (8.5-10.1); Chloride 106 mmol/L (98-107); Estimated GFR 124.58 (mL/min/1.73m2); Glucose 91 mg/dL (74-106); Magnesium 1.7 mg/dL (1.8-2.4); Potassium 3.2 mmol/L (3.5-5.1); Sodium 141 mmol/L (136-145)
--- NOTE | 2024-10-13 09:38 | PDOC.CMPRO ---
Date of service: 10/13/24 Time of Service: 09:38 Care Management Progress Note Progress Note Text Progress Note Text: Jocelyne was lying in bed and appeared to be sleeping comfortably when CM attempted to meet with her. She was initially admitted for a perforated appendicitis, followed by an allergic reaction to Levofloxacin the day of her anticipated discharge. Repeat CT was done today, now developing abscess, may need ERCP at [facility] and/or repeat CT on Thursday, per RN. CM will follow and support discharge planning conciderations as her plan of care continues to develope. Discharge Potential Discharge Needs: PCP F/U Appt (T-doc hospital follow up, pt is planning to establish care with a local PCP, has provider list) and Surgical F/U Appt Anticipated Barriers to Discharge: None Identified Patient/Family Education Needs: Review discharge instructions, discuss Ask Me Three Transportation: Private vehicle Plan: Jocelyne requires additional medical work up, will possibly need an ERCP at [facility] followed by repeat CT on Thursday. Anticipate, Jocelyne will discharge home once medically cleared by surgery. She will have a hospital follow up with the T-doc at [facility], and f/u with the surgeon. Jocelyne will transport in a private vehicle and continue per her plan of care. CM will continue to follow. Social Determinants of Health Screening Social Determinants of health last assessed in clinic: 10/13/24 Will the Patient Participate in the Screening?: Yes Do you worry about having a steady place to live?: no Problems where you live: no known problems In the past 12 months, have you had to go without electric, gas, oil or water in your home?: no 1. Within the past 12 months, we worried whether our food would run out before we got money to buy more.: Never true 2. Within the past 12 months, the food we bought just didn't last and we didn't have money to get more.: Never true Has lack of transportation kept you from medical appointments or from doing things needed for daily living?: no Has anyone in your life made you feel unsafe or unsupported?: no How hard is it for you to pay for the very basics like food, housing, medical care, and heating? Would you say it is:: Not hard at all Do you want help finding or keeping work or a job?: I do not need or want help If for any reason you need help with day-to-day activities such as bathing, preparing meals, shopping, managing finances, etc., do you get the help you need?: I don?t need any help How often do you feel lonely or isolated from those around you?: Never Do you speak a language other than Maltese at home?: No Does the patient want assistance with any of the above?: No
[2024-10-13] MEDS: Potassium Chloride 20 MEQ TABCR 40 MEQ PO (10:46)
--- NOTE | 2024-10-13 11:47 | W.PM.PROGNOT ---
Date of Service Date of service: 10/13/24 Time of Service: 11:48 Assessment and Plan Assessment and plan (1) Drug reaction: Status: Acute Assessment and plan: She appears to be doing just fine on the Omnicef and Flagyl. She does report some bad taste associated with the Flagyl, but no abdominal discomfort. The rash that she had previously has improved. (2) Acute perforated appendicitis: Status: Acute Assessment and plan: Patient's last CT scan was on Thursday. It has been [address] scan. Will repeat CT scan, this time without oral nor IV contrast. Assess the right lower quadrant, see if there is abscess development, or if site of inflammation is regressing. If there is continued inflammation in the right lower quadrant, plan for percutaneous drainage of this, if amenable. Would need transportation to [facility]. If inflammation is improving, plan for discharge with oral Omnicef and Flagyl. (3) Depression: Status: Chronic Assessment and plan: Unchanged from prior, her Lexapro will continue. (4) Anxiety: Status: Chronic Assessment and plan: Lexapro as above. Subjective Subjective Interval history since last seen: Patient today indicating some pain, but seems improving. No nausea nor vomiting. The redness that was present on her chest face, and right arm appear improving as well. Exam Narrative Exam Narrative: Examined patient today, with the medical staff member present as an store administrative assistant and commercial service technician. Patient's abdomen is soft, minimally tender in the right lower quadrant, nondistended. The areas of redness on her upper chest, maxillary regions on her face, and the lateral portion of her right arm, are returned to baseline, with no erythema. Objective Last Vital Signs Temp 35.9 C L 10/13/24 07:41 Pulse 77 10/13/24 07:41 Resp 14 10/13/24 07:41 BP 129/78 10/13/24 07:41 Pulse Ox 98 10/13/24 07:41 Laboratory Results - last 24 hr 10/13/24 06:39 WBC 10.25 RBC 3.45 L Hgb 10.4 L Hct 31.2 L MCV 90 MCH 30.1 MCHC 33.3 RDW 13.1 Plt Count 314 MPV 8.9 Immature Gran % 1.1 Neutrophils % 64.2 Lymphocytes % 24.6 Monocytes % 7.4 Eosinophils % 2.4 Basophils % 0.3 Nucleated RBC % 0.0 Absolute Neutrophils 6.58 Absolute Lymphocytes 2.52 Absolute Monocytes 0.76 Absolute Eosinophils 0.25 Absolute Basophils 0.03 Sodium 141 Potassium 3.2 L Chloride 106 Carbon Dioxide 29.0 Anion Gap 6.0 BUN 7 Creatinine 0.5 L Est GFR (CKD-EPI 2020) 124.58 Glucose 91 Calcium 8.1 L Magnesium 1.7 L Objective Narrative Objective Narrative: Reviewed patient's laboratory values, they are normalized, she has some mild hypokalemia, has ordered a replacement for this today. Time Spent with Patient Time Spent with Patient: 25-34 minutes Time was spent: preparing to see the patient(eg.review tests), ordering medications,tests, procedures and counseling the patient
[2024-10-13] MEDS: Omnipaque 350 MG/ML 100 ML BTL 75 ML IJ (12:39)
[2024-10-13] MEDS: Normal Saline - Diluent 50 ML VIAL IJ (12:40)
[2024-10-13] MEDS: Cefdinir 300 MG CAP 600 MG PO (13:16)
[2024-10-13 13:20] VITALS: BP 131/57; PULSE 82; RESP 16; TEMP 36.2; O2SAT 95
[2024-10-13 17:19] VITALS: BP 139/85; PULSE 82; RESP 16; TEMP 36.7; O2SAT 96
[2024-10-13] MEDS: Enoxaparin 40 MG/0.4 ML SYR SC (19:56)
[2024-10-13 21:46] VITALS: BP 137/82; PULSE 76; RESP 16; TEMP 36.5; O2SAT 97
[2024-10-14 00:28] VITALS: BP 128/72; PULSE 71; RESP 18; TEMP 36.5; O2SAT 96
[2024-10-14] MEDS: Ibuprofen 600 MG TAB PO ×2 (05:39→11:03)
[2024-10-14] MEDS: Acetaminophen 500 MG TAB PO ×5 (05:40→23:19)
[2024-10-14 06:54] VITALS: BP 116/82; PULSE 84; RESP 16; TEMP 36.5; O2SAT 96
[2024-10-14] MEDS: Escitalopram 10 MG TAB PO (08:30)
[2024-10-14] MEDS: metroNIDAZOLE 500 MG TAB PO ×3 (08:30→23:19)
--- NOTE | 2024-10-14 09:20 | CMPROGNOTE_ITS ---
Date of service: 10/14/24 Time of Service: 09:20 Care Management Progress Note Progress Note Text Progress Note Text: Jocelyne was sitting up in bed playing [employer]anquil[employer]ire when CM attempted to meet with her. She had imaging yesterday and is slightly confused about her plan of care and is waiting for an update from the Surgeon. Fortunately, nursing was present at the time and was able to provide her with some details. Jocelyne was able to verbalize that she can expect to be here until her repeat CT scan on Thursday, on IV ABX and that surgical intervention is not recommended at this time. Jocelyne reports that she is very close with her half sister (Suzanne Mcdonnell) and her step mother (Kimberlyn Santana) and wants them to be updated on her plan of care but sometimes feels like Suzanne has a tendency to get her worked up. Moving forward Jocelyne is going to seek clarification from her primary nurse or Surgeon when she gets information about her plan of care from family Jocelyne is pleasant and pleased with the care she is receiving, she is playing cards, coloring and finding ways to pass her time during this extended hospital stay. CM will follow and support discharge planning conciderations as her plan of care continues to develope. Discharge Potential Discharge Needs: PCP F/U Appt and Surgical F/U Appt Anticipated Barriers to Discharge: None Identified Patient/Family Education Needs: Review discharge instructions, discuss Ask Me Three Transportation: Private vehicle Plan: Jocelyne requires additional medical work up, IV ABX and repeat CT on Thursday. Surgical intervention is not indicated at this time. Anticipate, Jocelyne will discharge home with outpatient follow up once medically cleared per Surgical MD. She will transport via private vehicle with her sister Suzanne. Will need a hospital follow up with the T-doc at [facility] and Surgeon. Pt is planning to establish care with with a local PCP and has the list of local primary care offices in the area. CM will continue to follow. Social Determinants of Health Screening Social Determinants of health last assessed in clinic: 10/14/24 Will the Patient Participate in the Screening?: Yes Do you worry about having a steady place to live?: no Problems where you live: no known problems In the past 12 months, have you had to go without electric, gas, oil or water in your home?: no 1. Within the past 12 months, we worried whether our food would run out before we got money to buy more.: Never true 2. Within the past 12 months, the food we bought just didn't last and we didn't have money to get more.: Never true Has lack of transportation kept you from medical appointments or from doing things needed for daily living?: no Has anyone in your life made you feel unsafe or unsupported?: no How hard is it for you to pay for the very basics like food, housing, medical care, and heating? Would you say it is:: Not hard at all Do you want help finding or keeping work or a job?: I do not need or want help If for any reason you need help with day-to-day activities such as bathing, preparing meals, shopping, managing finances, etc., do you get the help you need?: I don?t need any help How often do you feel lonely or isolated from those around you?: Never Do you speak a language other than [place] at home?: No Does the patient want assistance with any of the above?: No
[2024-10-14 11:07] VITALS: BP 130/80; PULSE 83; RESP 17; TEMP 36.6; O2SAT 96
--- NOTE | 2024-10-14 12:08 | PGE_ITS ---
Date of Service Date of service: 10/14/24 Time of Service: 12:08 Assessment and Plan Assessment and plan (1) Drug reaction: Status: Acute Assessment and plan: She appears to be doing just fine on the Omnicef and Flagyl. Has allergy to levaquin. (2) Acute perforated appendicitis: Status: Acute Assessment and plan: CT shows developing abscess in RLQ, but is not yet amenable to drainage percutaneously. She does need to stay in the hospital, she will most assuredly be readmitted if she were to be discharged. This cannot be managed as an outpatient. Have ordered some supportive medication, lactobacillus, metamucil and MVN. Stopped ibuprofen and dilaudid, she does not need these right now. Continue abx as above. She needs to shower daily. Wrote out plan for patient on paper and taped this below her TV. Plan to get repeat CT scan on Thursday next week with IV and ORAL contrast. Plan to transfer to [facility] for percutaneous drain then come back here afterwards. (3) Depression: Status: Chronic Assessment and plan: Unchanged from prior, her Lexapro will continue. (4) Anxiety: Status: Chronic Assessment and plan: Lexapro as above. Subjective Subjective Interval history since last seen: Patient still with abdominal pain, not significantly worsened from prior. No nausea nor vomiting. Exam Narrative Exam Narrative: Examined patient with her nurse present as an hr administrative assistant and computer numerical control machinist. Redness on patient's chest is resolved. Her abdomen is non-distended, she is tender on the right mid lateral abdomen. Objective Last Vital Signs Temp 36.6 C 10/14/24 11:07 Pulse 83 10/14/24 11:07 Resp 17 10/14/24 11:07 BP 130/80 10/14/24 11:07 Pulse Ox 96 10/14/24 11:07 Time Spent with Patient Time Spent with Patient: 25-34 minutes Time was spent: preparing to see the patient(eg.review tests), indepentently interpreting results, counseling the patient and care coordination
[2024-10-14] MEDS: Cefdinir 300 MG CAP 600 MG PO (15:01)
[2024-10-14 15:53] VITALS: BP 113/83; PULSE 77; RESP 16; TEMP 36.1; O2SAT 96
[2024-10-14 19:09] VITALS: BP 130/62; PULSE 91; RESP 18; TEMP 36.4; O2SAT 99
[2024-10-14] MEDS: Psyllium PKT 1 EACH PO (19:30)
[2024-10-14] MEDS: Enoxaparin 40 MG/0.4 ML SYR SC (19:30)
[2024-10-14 23:22] VITALS: BP 124/68; PULSE 83; RESP 20; TEMP 36.5; O2SAT 97
[2024-10-15 04:41] VITALS: BP 114/57; PULSE 64; RESP 19; TEMP 36.4; O2SAT 97
[2024-10-15] MEDS: Escitalopram 10 MG TAB PO (08:12)
[2024-10-15] MEDS: Acetaminophen 500 MG TAB PO ×4 (08:12→23:08)
[2024-10-15] MEDS: metroNIDAZOLE 500 MG TAB PO ×3 (08:12→23:08)
[2024-10-15] MEDS: Multivitamin TAB 1 TAB PO (08:12)
[2024-10-15] MEDS: Psyllium PKT 1 EACH PO ×2 (08:12→19:53)
--- NOTE | 2024-10-15 10:36 | PGE_ITS ---
Date of Service Date of service: 10/15/24 Time of Service: 10:36 Assessment and Plan Assessment and plan (1) Acute perforated appendicitis: Status: Acute Assessment and plan: Doing okay today, pain appears to be increasing slightly. Continue on diet, continue on oral antibiotics. Will order laboratory values for tomorrow. (2) Depression: Status: Chronic Assessment and plan: Unchanged from prior, her Lexapro will continue. (3) Anxiety: Status: Chronic Assessment and plan: Lexapro as above. Subjective Subjective Interval history since last seen: Patient still having abdominal pain on the right mid abdomen. Subjectively this appears to be worse than yesterday. She is tolerating a diet just fine. Objective Last Vital Signs Temp 36.4 C L 10/15/24 04:41 Pulse 64 10/15/24 04:41 Resp 19 10/15/24 04:41 BP 114/57 L 10/15/24 04:41 Pulse Ox 97 10/15/24 04:41 Objective Narrative Objective Narrative: Patient was examined today with a medical staff member present as an bilingual legal assistant and early childhood educator aide. She still does have tenderness on the right mid abdomen, but without guarding nor rigidity. Time Spent with Patient Time Spent with Patient: <25 minutes Time was spent: preparing to see the patient(eg.review tests) and counseling the patient
[2024-10-15] MEDS: Cefdinir 300 MG CAP 600 MG PO (14:47)
[2024-10-15 17:54] VITALS: BP 130/71; PULSE 91; RESP 16; TEMP 36.9; O2SAT 96
[2024-10-15] MEDS: Ibuprofen 600 MG TAB PO (18:00)
[2024-10-15] MEDS: Enoxaparin 40 MG/0.4 ML SYR SC (19:54)
[2024-10-15 20:44] VITALS: BP 126/67; PULSE 77; RESP 19; TEMP 36.6; O2SAT 97
[2024-10-15 23:03] VITALS: BP 120/58; PULSE 82; RESP 20; TEMP 36.2; O2SAT 98
[2024-10-16 06:46] LABS: Abs Immature Grans 0.09 10^3/uL (0.0-0.06); Absolute Basophil Count 0.03 10^3/uL (0.0-0.2); Absolute Eosinophil Count 0.15 10^3/uL (0.0-0.7); Basophils % 0.2 %; Eosinophils % 1.1 %; HCT 33.5 % (36.0-46.0); HGB 11.3 g/dL (11.2-15.7); Immature Grans % 0.7 %; Lymphocytes % 14.8 %; MCHC 33.7 % (32.0-36.0); MCV 92 fL (80-95); MPV 8.6 fL (8.0-11.0); Monocytes % 7.4 %; Neutrophils % 75.8 %; Platelet Count 345 10^3/uL (130-400); RBC 3.64 10^6/uL (3.93-5.22); RDW 13.4 % (11.7-14.6); RDW-SD 44.6 fL; WBC 13.47 10^3/uL (4.4-10.8)
[2024-10-16 06:49] LABS: Absolute Lymphocyte Count 1.99 10^3/uL (1.2-3.4); Absolute Neutrophil Count 10.21 10^3/uL (1.2-6.7)
[2024-10-16 06:57] LABS: Anion Gap 7.8 mmol/L (3-11); BUN 11 mg/dL (7-18); CO2 30.2 mmol/L (21.0-32.0); CREATININE 0.7 mg/dL (0.55-1.02); Calcium 8.8 mg/dL (8.5-10.1); Chloride 102 mmol/L (98-107); Estimated GFR 114.88 (mL/min/1.73m2); Glucose 96 mg/dL (74-106); Potassium 4.1 mmol/L (3.5-5.1); Sodium 140 mmol/L (136-145)
[2024-10-16 07:57] VITALS: BP 111/61; PULSE 77; RESP 17; TEMP 36.7; O2SAT 96
[2024-10-16] MEDS: Psyllium PKT 1 EACH PO ×2 (08:54→19:37)
[2024-10-16] MEDS: metroNIDAZOLE 500 MG TAB PO ×2 (08:54→16:03)
[2024-10-16] MEDS: Multivitamin TAB 1 TAB PO (08:54)
[2024-10-16] MEDS: Acetaminophen 500 MG TAB PO ×4 (08:55→19:37)
[2024-10-16] MEDS: Escitalopram 10 MG TAB PO (08:55)
[2024-10-16 12:08] VITALS: BP 124/72; PULSE 79; RESP 17; TEMP 36.6; O2SAT 96
[2024-10-16] MEDS: Cefdinir 300 MG CAP 600 MG PO (14:03)
--- NOTE | 2024-10-16 14:49 | PGE_ITS ---
Date of Service Date of service: 10/16/24 Time of Service: 14:49 Assessment and Plan Assessment and plan (1) Acute perforated appendicitis: Status: Acute Assessment and plan: Will move her CT scan up a day and perform it tomorrow. Last CT was on the . Her WBC is slightly elevated today. Currently on oral omnicef and falgyl. If she does have abscess could convert back to IV rocephin and flagyl. Have re-ordered labs for tomorrow. Subjective Subjective Interval history since last seen: Patient today reporting left and right lower quadrant pain, intensity is minimal. No nausea nor vomiting. Exam Narrative Exam Narrative: Examined patient today with medical staff member present as blueprint machine operator. Her abdomen is soft, minimally tender and non-distended. Objective Last Vital Signs Temp 36.6 C 10/16/24 12:08 Pulse 79 10/16/24 12:08 Resp 17 10/16/24 12:08 BP 124/72 10/16/24 12:08 Pulse Ox 96 10/16/24 12:08 Laboratory Results - last 24 hr 10/16/24 06:15 WBC 13.47 H RBC 3.64 L Hgb 11.3 Hct 33.5 L MCV 92 MCH 31.0 MCHC 33.7 RDW 13.4 Plt Count 345 MPV 8.6 Immature Gran % 0.7 Neutrophils % 75.8 Lymphocytes % 14.8 Monocytes % 7.4 Eosinophils % 1.1 Basophils % 0.2 Nucleated RBC % 0.0 Absolute Neutrophils 10.21 H Absolute Lymphocytes 1.99 Absolute Monocytes 1.00 H Absolute Eosinophils 0.15 Absolute Basophils 0.03 Sodium 140 Potassium 4.1 Chloride 102 Carbon Dioxide 30.2 Anion Gap 7.8 BUN 11 Creatinine 0.7 Est GFR (CKD-EPI 2020) 114.88 Glucose 96 Calcium 8.8 Time Spent with Patient Time Spent with Patient: <25 minutes Time was spent: preparing to see the patient(eg.review tests) and counseling the patient
[2024-10-16 16:08] VITALS: BP 120/66; PULSE 84; RESP 16; TEMP 37; O2SAT 97
[2024-10-16] MEDS: Ibuprofen 600 MG TAB PO (19:37)
[2024-10-16] MEDS: Enoxaparin 40 MG/0.4 ML SYR SC (19:37)
[2024-10-16] MEDS: Normal Saline Flush 10 ML SYR IVP (19:38)
[2024-10-16 20:21] VITALS: BP 124/58; PULSE 77; RESP 19; TEMP 36.1; O2SAT 96
[2024-10-16 23:09] VITALS: BP 108/73; PULSE 70; RESP 19; TEMP 36.2; O2SAT 98
[2024-10-17] MEDS: metroNIDAZOLE 500 MG TAB PO ×3 (00:21→15:09)
[2024-10-17] MEDS: Acetaminophen 500 MG TAB PO ×5 (00:21→21:45)
[2024-10-17 07:18] LABS: Abs Immature Grans 0.06 10^3/uL (0.0-0.06); Absolute Basophil Count 0.03 10^3/uL (0.0-0.2); Absolute Eosinophil Count 0.26 10^3/uL (0.0-0.7); Absolute Lymphocyte Count 2.24 10^3/uL (1.2-3.4); Absolute Neutrophil Count 7.06 10^3/uL (1.2-6.7); Basophils % 0.3 %; Eosinophils % 2.5 %; HCT 34.2 % (36.0-46.0); HGB 11.3 g/dL (11.2-15.7); Immature Grans % 0.6 %; Lymphocytes % 21.6 %; MCH 30.5 pg (27.0-33.0); MCV 92 fL (80-95); MPV 8.5 fL (8.0-11.0); Monocytes % 6.8 %; Neutrophils % 68.2 %; Platelet Count 354 10^3/uL (130-400); RDW 13.3 % (11.7-14.6); RDW-SD 45.1 fL; WBC 10.35 10^3/uL (4.4-10.8)
[2024-10-17 07:36] LABS: Anion Gap 9.3 mmol/L (3-11); BUN 14 mg/dL (7-18); CO2 28.7 mmol/L (21.0-32.0); CREATININE 0.6 mg/dL (0.55-1.02); Calcium 8.9 mg/dL (8.5-10.1); Chloride 102 mmol/L (98-107); Estimated GFR 119.23 (mL/min/1.73m2); Glucose 85 mg/dL (74-106); Potassium 4.2 mmol/L (3.5-5.1); Sodium 140 mmol/L (136-145)
[2024-10-17] MEDS: Omnipaque 350 MG/ML 50 ML BTL PO (07:48)
[2024-10-17] MEDS: Breeza Beverage 473 ML BTL PO ×2 (07:49→07:50)
--- NOTE | 2024-10-17 08:00 | DI.CT_ITS ---
Exam(s) CT ABDOMEN PELVIS W EXAM: CT ABDOMEN PELVIS W CLINICAL HISTORY: Perforated appendicitis with concern for abscess. TECHNIQUE: Imaging Protocol: Axial computed tomography images with coronal and sagittal reformatted images were created and reviewed CONTRAST MATERIAL: Intravenous: Omnipaque 350 Contrast volume:75 ml Oral: yes COMPARISON: CT CT ABDOMEN PELVIS W from 10/06/[address] ABDOMEN PELVIS W from 10/13/2024 FINDINGS: ABDOMEN and PELVIS: Lung Bases: No acute findings. Small right pleural effusion no longer present. Liver: Normal density. No suspicious mass. Gallbladder and biliary tract: No radiodense calculus. No wall thickening or pericholecystic fluid. No biliary dilation. Pancreas: Normal density. No abnormal calcifications or inflammatory process. No evidence of mass. Spleen: Normal. Kidneys: Normal size, contour and axis. No radiodense stones. No obstructive uropathy. No suspicious masses seen. Adrenal glands: No masses seen. Vasculature: Abdominal aorta non-dilated. Soft tissues: Unremarkable. Bladder: No gross wall thickening. No calculi.No focal mass. Bowel: Inflammation at the base of the cecum. Appendix is mainly obscured by surrounding abscess collection and inflammation. No obstruction. Diverticulosis again noted. No evidence of diverticulitis. Normal small quantity of stool. Peritoneal cavity: No ascites. There has been mild interval increase in size of previously noted right lower quadrant abscess around the appendix, now measuring 4.5 cm in diameter. There are a few air bubbles. There is inflammation at the base of cecum. Bones: Unremarkable for age. Reproductive organs: Unremarkable. Lymph nodes: No pathologically enlarged lymph nodes. IMPRESSION:: Increase in size of appendiceal abscess, 4.5 cm. RADIATION DOSE DELIVERED: 765.96mGy.cm Total DLP DATA REPOSITORY: All CT scans at this facility are submitted to the National Radiology Data Registry (NRDR) Dose Index Registry (DIR) with the [employer] (ACR). RADIATION OPTIMIZATION: All CT scans at this facility use at least one of these dose optimization techniques: automated exposure control; mA and/or kV adjustment per patient size (includes targeted exams where dose is matched to clinical indication); or iterative reconstruction.
[2024-10-17 08:46] VITALS: BP 125/73; PULSE 78; RESP 18; TEMP 36.5; O2SAT 97
[2024-10-17] MEDS: Escitalopram 10 MG TAB PO (08:58)
[2024-10-17] MEDS: Psyllium PKT 1 EACH PO ×2 (08:58→21:45)
[2024-10-17] MEDS: Multivitamin TAB 1 TAB PO (08:58)
[2024-10-17] MEDS: Omnipaque 350 MG/ML 100 ML BTL 75 ML IJ (09:28)
[2024-10-17] MEDS: Normal Saline - Diluent 50 ML VIAL IJ (09:30)
[2024-10-17 11:13] VITALS: BP 119/67; PULSE 69; RESP 18; TEMP 36.6; O2SAT 96
[2024-10-17] MEDS: Cefdinir 300 MG CAP 600 MG PO (15:09)
[2024-10-17 16:49] VITALS: BP 107/69; PULSE 71; RESP 18; TEMP 36.8; O2SAT 99
--- NOTE | 2024-10-17 16:58 | PDOC.CMPRO ---
Date of service: 10/17/24 Time of Service: 17:39 Care Management Progress Note Progress Note Text Progress Note Text: Jocelyne was sitting in bed and had just finished meeting with the Surgeon. Jocelyne had a repeat CT scan today and will go to [facility] tomorrow, for a down and back. She states she is scared, and nervous for this procedure. She is on a liquid diet until midnight, and then will be NPO. CM will continue to follow. Discharge Potential Discharge Needs: PCP F/U Appt and Surgical F/U Appt Anticipated Barriers to Discharge: Medical Status Patient/Family Education Needs: Review discharge instructions, discuss Ask Me Three Plan: Jocelyne requires additional medical work up, IV ABX and repeat which occurred today. Tomorrow, Jocelyne is going to [facility] for a down and back for surgical intervention of abscess draining. Anticipate, Jocelyne will discharge home with outpatient follow up once medically cleared per Surgical MD. She will transport via private vehicle with her sister Suzanne. Will need a hospital follow up with the T-doc at [facility] and Surgeon. Pt is planning to establish care with with a local PCP and has the list of local primary care offices in the area. CM will continue to follow. Social Determinants of Health Screening Social Determinants of health last assessed in clinic: 10/17/24 Will the Patient Participate in the Screening?: Yes Do you worry about having a steady place to live?: no Problems where you live: no known problems In the past 12 months, have you had to go without electric, gas, oil or water in your home?: no 1. Within the past 12 months, we worried whether our food would run out before we got money to buy more.: Don't know/refused 2. Within the past 12 months, the food we bought just didn't last and we didn't have money to get more.: Don't know/refused Has lack of transportation kept you from medical appointments or from doing things needed for daily living?: no Has anyone in your life made you feel unsafe or unsupported?: no How hard is it for you to pay for the very basics like food, housing, medical care, and heating? Would you say it is:: Not hard at all Do you want help finding or keeping work or a job?: I do not need or want help If for any reason you need help with day-to-day activities such as bathing, preparing meals, shopping, managing finances, etc., do you get the help you need?: I don?t need any help How often do you feel lonely or isolated from those around you?: Never Do you speak a language other than Portuguese at home?: No Does the patient want assistance with any of the above?: No
--- NOTE | 2024-10-17 17:39 | PGE_ITS ---
Date of Service Date of service: 10/17/24 Time of Service: 17:39 Assessment and Plan Assessment and plan (1) Acute perforated appendicitis: Status: Acute Assessment and plan: We reviewed her CAT scan from today together, and I showed her all of the imaging. I explained that there is a good target for a percutaneous drain in the right lower quadrant adjacent to her perforated appendicitis. I have been in touch with the interventional radiologist at [facility], and although they are not able to accommodate her in the schedule today, they are optimistic that they will have a slot tomorrow. I explained to Jocelyne that the process will be a transfer down there in an ambulance, where she will undergo percutaneous drainage of the abscess, prior to being transferred back here. Assuming she tolerates that okay, will advance her diet tomorrow night, and repeat some blood work on Thursday. If she is feeling well, we will review some drain care instructions, which I previewed for her today, and I am hopeful we can get her home in the next few days. Subjective Subjective Interval history since last seen: Jocelyne reports that her pain is about the same, she denies any subjective fevers today. She has not been out of bed much. She does have quite a bit of appetite today. Exam GI Other: Abdomen is soft, nondistended. She is tender in the right lower quadrant. Objective Last Vital Signs Temp 98.2 F 10/17/24 16:49 Pulse 71 10/17/24 16:49 Resp 18 10/17/24 16:49 BP 107/69 10/17/24 16:49 Pulse Ox 99 10/17/24 16:49 Laboratory Results - last 24 hr 10/17/24 07:01 WBC 10.35 RBC 3.70 L Hgb 11.3 Hct 34.2 L MCV 92 MCH 30.5 MCHC 33.0 RDW 13.3 Plt Count 354 MPV 8.5 Immature Gran % 0.6 Neutrophils % 68.2 Lymphocytes % 21.6 Monocytes % 6.8 Eosinophils % 2.5 Basophils % 0.3 Nucleated RBC % 0.0 Absolute Neutrophils 7.06 H Absolute Lymphocytes 2.24 Absolute Monocytes 0.70 Absolute Eosinophils 0.26 Absolute Basophils 0.03 Sodium 140 Potassium 4.2 Chloride 102 Carbon Dioxide 28.7 Anion Gap 9.3 BUN 14 Creatinine 0.6 Est GFR (CKD-EPI 2020) 119.23 Glucose 85 Calcium 8.9 Time Spent with Patient Time Spent with Patient: 25-34 minutes Time was spent: preparing to see the patient(eg.review tests), referring, communicating with other health patient care director, indepentently interpreting results, counseling the patient and care coordination
[2024-10-17 20:18] VITALS: BP 106/77; PULSE 73; RESP 22; TEMP 36.6; O2SAT 96
[2024-10-17] MEDS: Enoxaparin 40 MG/0.4 ML SYR SC (21:45)
[2024-10-18] MEDS: metroNIDAZOLE 500 MG TAB PO ×2 (01:04→08:20)
[2024-10-18] MEDS: Acetaminophen 500 MG TAB PO ×5 (01:04→20:38)
[2024-10-18 04:22] VITALS: BP 112/59; PULSE 70; RESP 18; TEMP 36.2; O2SAT 97
[2024-10-18] MEDS: Escitalopram 10 MG TAB PO (08:20)
[2024-10-18 08:22] VITALS: BP 120/62; PULSE 72; RESP 19; TEMP 36.6; O2SAT 96
--- NOTE | 2024-10-18 11:49 | NUR.NOTE ---
Nursing Note: Call from [facility], Nehemiah RN doing prep for procedure: CT guided drain placement. Gave report: Right ac PIV, NPO since MN with sips of water for meds this morning, walks I. Pt is aware of down and back procedure.
[2024-10-18 12:19] VITALS: BP 126/71; PULSE 67; RESP 18; TEMP 36.7; O2SAT 98
[2024-10-18] MEDS: Normal Saline Flush 10 ML SYR IVP (12:53)
--- NOTE | 2024-10-18 15:40 | PDOC.CMPRO ---
Date of service: 10/18/24 Time of Service: 15:43 Care Management Progress Note Progress Note Text Progress Note Text: Jocelyne went for a down and back today for an abscess to be drained. Per report, if the operation goes well, her diet will be advanced, repeat blood work Thursday and discharge following shortly after. CM will continue to follow. Discharge Potential Discharge Needs: PCP F/U Appt and Surgical F/U Appt Anticipated Barriers to Discharge: Medical Status Patient/Family Education Needs: Review discharge instructions, discuss Ask Me Three Transportation: Private vehicle Plan: Anticipate, Jocelyne will discharge home with outpatient follow up once medically cleared per Surgical MD. She will transport via private vehicle with her sister Suzanne. Will need a hospital follow up with the T-doc at [facility] and Surgeon. Pt is planning to establish care with with a local PCP and has the list of local primary care offices in the area. CM will continue to follow. Social Determinants of Health Screening Social Determinants of health last assessed in clinic: 10/18/24 Will the Patient Participate in the Screening?: Yes Do you worry about having a steady place to live?: no Problems where you live: no known problems In the past 12 months, have you had to go without electric, gas, oil or water in your home?: no 1. Within the past 12 months, we worried whether our food would run out before we got money to buy more.: Never true 2. Within the past 12 months, the food we bought just didn't last and we didn't have money to get more.: Never true Has lack of transportation kept you from medical appointments or from doing things needed for daily living?: no Has anyone in your life made you feel unsafe or unsupported?: no How hard is it for you to pay for the very basics like food, housing, medical care, and heating? Would you say it is:: Not hard at all Do you want help finding or keeping work or a job?: I do not need or want help If for any reason you need help with day-to-day activities such as bathing, preparing meals, shopping, managing finances, etc., do you get the help you need?: I don?t need any help How often do you feel lonely or isolated from those around you?: Never Do you speak a language other than [place] at home?: No Does the patient want assistance with any of the above?: No
--- NOTE | 2024-10-18 18:13 | NUR.NOTE ---
Nursing Note: [place] [facility], EMS is there getting ready to bring pt back to [facility]. They aspirated 20 ml of purulent drainage and sent it to the lab, placed a REED bulb/multi purpose drain. It is sutured in and covered with gauze and tegaderm. Orders to flush it daily with 5-10 ml normal saline, Do Not Aspirate. During the procedure the pt received 3 mg midazolam and 150 mcg of fentanyl. She stayed awake through the whole procedure. She is A&O and doing well on room air post procedure, pain is at 1/10.
[2024-10-18] MEDS: Psyllium PKT 1 EACH PO (20:39)
[2024-10-18] MEDS: Enoxaparin 40 MG/0.4 ML SYR SC (20:40)
[2024-10-18 23:22] VITALS: BP 114/64; PULSE 75; RESP 16; TEMP 36.1; O2SAT 96
[2024-10-19] MEDS: metroNIDAZOLE 500 MG TAB PO ×3 (00:37→17:18)
[2024-10-19] MEDS: Acetaminophen 500 MG TAB PO ×4 (00:37→17:18)
[2024-10-19 03:31] VITALS: BP 116/64; PULSE 68; RESP 18; TEMP 36.3; O2SAT 95
[2024-10-19 06:24] LABS: HCT 36.5 % (36.0-46.0); HGB 12.1 g/dL (11.2-15.7); MCH 30.1 pg (27.0-33.0); MCHC 33.2 % (32.0-36.0); MCV 91 fL (80-95); MPV 8.4 fL (8.0-11.0); Platelet Count 345 10^3/uL (130-400); RBC 4.02 10^6/uL (3.93-5.22); RDW-SD 42.2 fL; WBC 7.61 10^3/uL (4.4-10.8)
[2024-10-19 08:18] VITALS: BP 126/63; PULSE 76; RESP 16; TEMP 36; O2SAT 96
[2024-10-19] MEDS: Psyllium PKT 1 EACH PO (09:18)
[2024-10-19] MEDS: Multivitamin TAB 1 TAB PO (09:18)
[2024-10-19] MEDS: Escitalopram 10 MG TAB PO (09:19)
--- NOTE | 2024-10-19 09:22 | DSE_ITS ---
Date of service: 10/19/24 Time of Service: 09:23 DS: Diagnosis Discharge Diagnosis (1) Acute perforated appendicitis: Start date: 10/06/24 Status: Acute Asessment and Plan: Patient is being discharged home with a percutaneous drain placed on 10/18/2024 at [facility]. She tolerated the drain placement well, has no fever, normal white blood cell count, minimal procedure associated pain, tolerated a bedside flushing, is tolerating oral antibiotics. Close outpatient follow-up is scheduled. Discharge Plan Disposition Patient Disposition: Home Condition: Stable Discharge Details Reason For Visit: Acute appendicitis Admit Date/Time: 10/06/24 17:42 Admit Provider: Juancho Lozano Attending Provider: Juancho Lozano Primary Care Provider: None,None Hospital Course Hospital Course: Patient is a 38-year-old female, she has a history of depression and anxiety, as well as learning disability, she presented to the hospital on 10/06/2024, was found to have perforated appendicitis, and appeared longstanding in nature. She was managed medically. Given antibiotics, kept n.p.o. for about 4 days, underwent repeat cross-sectional imaging, found to have slight improvement in the inflammation, with no ileus. She was restarted on diet . On 10/17/2024, after having a spike in leukocytosis, a repeat CT scan showed enlargement of a periappendiceal abscess up to 4.5 cm. On 10/18/2024 she was transferred to [facility] for the day where CT-guided drain placement by interventional radiology was performed and was apparently successful. The patient was returned with the drain, instructions for drain care which include t hat the drain should be removed by November 01, 2024. The patient had no worsening signs overnight and is medically stable for discharge on continued oral antibiotics . Home Meds and New Rx's Prescriptions: New acetaminophen 500 mg Tablet 500 mg PO Q4H 14 Days Qty: 30 0RF ibuprofen 600 mg Tablet 600 mg PO Q6H PRN PRN14 Days Qty: 15 0RF multivitamin [Multiple Vitamins] Tablet 1 tab PO DAILY 30 Days Qty: 0 0RF metronidazole 500 mg Tablet 500 mg PO Q8H 5 Days Qty: 15 0RF cefdinir 300 mg Capsule 600 mg PO Q24H 5 Days Qty: 10 0RF Metamucil Sugar-Free (aspart) 3.4 gram/5.8 gram Powder 3.4 g PO BID 30 Days Qty: 0 0RF Lactobacillus acidophilus 500 million cell Capsule 500 mmu cells PO TID PRN PRN (Reason: diarrhea) 7 Days Qty: 0 0RF Continued norgestimate-ethinyl estradiol 0.25-0.035 mg tablet 1 tab PO DAILY Patient Comments: TAKE 1 TABLET BY MOUTH ONCE A DAY FOR CONTRACEPTION AND START THE... (REFER TO PRESCRIPTION NOTES). escitalopram oxalate 10 mg tablet 10 mg PO DAILY Patient Comments: take 1 tablet by mouth once daily for MOOD Discharge Instructions Instructions: Mediterranean Diet, Diet and health, Weight Loss Diet, Dietary Fats, Making Healthy Choices When You Grocery Shop, Making Healthy Choices When You Eat Out, Gastrointestinal tract perforation, Low-fat diet Additional Instructions: Patient has been provided with several resources for healthy eating. Should certainly avoid fast foods, greasy and fatty foods. No restriction to activity. Be sure to keep the drain bulb in 2 clothing at all times. Refer to instructions from [facility] regarding drain care. Take your temperature 2 times per day and call the surgical office if your temperature is greater than 101.5 ?F Call the surgical office for worsening symptoms of nausea, vomiting, abdominal pain. Stand Alone Forms: Nursing Discharge Form Referrals: Con Calhoun MD [ [facility], Surgery] - 10/24/24 Referral Note: requires follow up for conservative management/ IR drain for acute appy Activity:: Activity as Tolerated Equipment/Supplies:: saline flushes Diet:: Other Discharge Data Discharge Date/Time-TO BE ENTERED AT DEPARTURE: 10/19/24 09:53 DS: Summary Time Spent with Patient providing and/or coordinating discharge services: Less than 30 minutes Status at Discharge Functional status at discharge: independent ambulation Overall status at discharge: patient is back to baseline Mental Status: mental status grossly normal Speech and Movement: speech and movement normal Mood: congruent mood Affect: normal affect and anxious affect Exam Narrative Exam Narrative: Anxious but well-appearing overweight female, lying comfortably in bed, conversant HENAR Other: wnl Resp Auscultation: clear to auscultation bilaterally Cardio Rate: regular rate and not tachycardic Rhythm: regular rhythm GI Inspection: normal to inspection, non-distended and obesity Palpation: soft, nontender and other (Dressing intact at drain site) Skin Other: Warm and dry Psych Appearance: grossly normal Mental Status: mental status grossly normal Speech and Movement: speech and movement normal Mood: congruent mood Affect: normal affect and anxious affect Thought Process: normal Thought Content: normal Insight: fair Judgment: fair DS: Data Vitals/I&O Vitals and I&O: Vital Signs Temperature 36.0 C L 10/19/24 08:18 Temperature Source Temporal Artery Scan 10/19/24 08:18 Pulse 76 10/19/24 08:18 Pulse Rhythm Regular 10/06/24 18:18 Respiratory Rate 16 10/19/24 08:18 Respiratory Effort Normal, Non-Labored 10/06/24 18:18 Respiratory Depth Normal 10/06/24 18:18 Respiratory Pattern Normal 10/06/24 18:18 Blood Pressure 126/63 10/19/24 08:18 Blood Pressure Mean 84 10/19/24 08:18 Pulse Oximetry 96 10/19/24 08:18 Oxygen Delivery Method Room Air 10/19/24 08:18 Oxygen Flow Rate 0 10/19/24 08:18 Pain Level 0 10/19/24 08:18 Comment pt refused vitals 10/17/24 23:48 Intake & Output 10/18/24 10/18/24 10/19/24 11:59 23:59 11:59 Intake Total 20 / 20 240 / 240 Output Total 20 / 20 Balance 20 / 20 220 / 220 Intake: IV 10 / 10 Oral 240 / 240 Injectate 10 / 10 RLQ 10 / 10 Output: Drainage 20 / 20 RLQ 20 / 20 Other: Urine Color Yellow Urine Appearance Clear Data Completed and Pending Completed studies during hospitalization [Text1]: Multiple CT scan abdomen and pelvis Pending studies at discharge: None Labs on day of discharge: Labs from last 24 hours 10/19/24 06:12 WBC 7.61 RBC 4.02 Hgb 12.1 Hct 36.5 MCV 91 MCH 30.1 MCHC 33.2 RDW 13.0 Plt Count 345 MPV 8.4 Additional Comments Additional comments: At the time of dictation, family is not yet available for teaching drain care. If nursing or discharge planning feels that family members are not appropriate to perform drain care after adequate teaching, the patient would require a home health referral [facility] All Active Problems (Updated 10/11/24 @ 19:56 by Juancho Lozano MD) Drug reaction (Acute) Anxiety (Chronic) Encounter for surveillance of contraceptive pills (Acute) Depression (Chronic) Sepsis (Acute) Hypomagnesemia (Acute) Hypokalemia (Acute) Acute perforated appendicitis (Acute) Social History Smoking/Tobacco Use Status: Never Smoking risk assessment performed?: Yes Alcohol Intake: current Alcohol Intake frequency: holidays/special occasions only Drug use: Rarely Substance use type: marijuana Housing: house Time Spent with Patient Time Spent with Patient: <45 minutes Time was spent: preparing to see the patient(eg.review tests), obtaining and/or reviewing separately otained hiistory and counseling the patient
[2024-10-19] MEDS: Cefdinir 300 MG CAP 600 MG PO (14:40)
--- NOTE | 2024-10-19 15:56 | PDOC.CMDIS ---
Date of service: 10/19/24 Time of Service: 15:56 LACE Index Scoring Tool Questions: Length of Stay (in days): 7 - 13 Was the patient admitted via the E.D.?: Yes E.D. Visits: 1 Answers: Total Score: 9 Risk of Readmission: Low Risk Care Management Discharge Plan Reason for Hospitalization: Perforated appendicitis Discharge Plan: Jocelyne will be discharged later this afternoon with no new services. Her sister, Suzanne, will be in later today to review Jocelyne's discharge instructions and to be taught how to care for Jocelyne's REED drain, and also to transport Jocelyne home. Jocelyne will f/u with the T-doc at [facility] and also with the surgeon. Suzanne has committed to taking Jocelyne to these appointments. Patient/Family Education Needs: Review of discharge instructions, drain care, activity, limitations, and discuss Ask me 3.
== END 2024-10-19 17:30 | disposition home or self-care (01) | DRG 871 ==
LOC: ER 17:44 → MS 17:55
PROVIDERS: Surgery; Admitting Provider Surgery; Emergency Provider Emergency Medicine; Responsible Provider Surgery; Visit Provider Surgery
DX: A41.9 Sepsis, unspecified organism (principal); K35.33 Acute appendicitis with perforation, localized peritonitis, and gangrene, with abscess; E83.42 Hypomagnesemia; E87.6 Hypokalemia; F32.A Depression, unspecified; F41.9 Anxiety disorder, unspecified; Z79.899 Other long term (current) drug therapy; F88 Other disorders of psychological development; L27.0 Generalized skin eruption due to drugs and medicaments taken internally; T36.8X5A Adverse effect of other systemic antibiotics, initial encounter
CPT/HCPCS: 00123; 36415; 80048; 80053; 81025; 83690; 85027; 96361; 96365; 96368; 96375; 99222; 99231; 99232; 99233; 99238; 99239; 99291; J1650; 74018; 74177; 81003; 81015; 83605; 83735; 85025; J0131; J0696; J1171; J1836; J1885; J2405; J2543; J3475; J3480; J3490; Q9967

== ENCOUNTER → 2024-10-24 14:09 | Outpatient (BNVA) | payer MEDICAID, SELFPAY | PROVIDERS: Visit Provider Surgery | DX: Z48.89 Encounter for other specified surgical aftercare (principal) | CPT/HCPCS: 99211 ==

== ENCOUNTER → 2024-11-01 14:05 | Outpatient (BNVA) | payer MEDICAID, SELFPAY | PROVIDERS: Visit Provider Physical Therapy Assistant | DX: Z48.89 Encounter for other specified surgical aftercare (principal); K35.32 Acute appendicitis with perforation, localized peritonitis, and gangrene, without abscess | CPT/HCPCS: 99213 ==

== ENCOUNTER → 2024-11-17 14:00 | Outpatient (BNVA) | payer MEDICAID, SELFPAY | PROVIDERS: Visit Provider Surgery | DX: K65.1 Peritoneal abscess (principal); Z98.890 Other specified postprocedural states | CPT/HCPCS: 99213 ==